=== PATIENT | male | born 1955 | race African-American/Black ===

== ENCOUNTER 2018-09-06 09:13 | Inpatient (IN) ==
[2018-09-06] MEDS: Sod Chloride 0.9% Inj 1,000 ML IV.CONT SCH ×3 (10:04→21:00)
--- NOTE | 2018-09-06 10:04 | ED ---
HPI General Chief complaint: Weakness Stated complaint: Weakness Time Seen by Provider: 09/06/18 09:54 Source: patient Mode of arrival: ambulatory Limitations: no limitations History of Present Illness HPI Narrative: 63-year-old male complains of generalized malaise and weakness. Patient states that symptoms started about 4 months ago and got progressively worse since then. Patient denies any headache. Patient denies any visual change. Patient denies any neck pain. Patient denies any chest pain or shortness of breath. Patient denies abdominal pain. Patient denies any nausea vomiting diarrhea. Patient denies any dysuria frequency. Patient denies any back pain. Patient denies any fever chills. Patient denies any focal weakness or numbness of the extremity. Patient is not on any routine medication. Patient denies any medical problem. Patient denies alcohol or drug abuse. Complaint: Reports generalized weakness Onset (ago): week(s) Duration: constant Location: Reports generalized Migration: Reports none Severity: moderate Relieving factors: none Exacerbating factors: none Associated symptoms: Reports denies other symptoms Related Data Home Medications Medication Instructions Recorded Confirmed No Known Home Medications 09/06/18 09/06/18 Allergies Allergy/AdvReac Type Severity Reaction Status Date / Time No Known Allergies Allergy Verified 09/06/18 09:20 Review of Systems ROS: all other systems reviewed are negative PMFSH Medical History Medical History Patient denies medical problems (Acute) Surgical History Surgical History No history of previous surgery (Acute) Social History Social History Substance History: No History of Abuse Second Hand Smoke Exposure: No Smoking Status: Former smoker Tobacco Type: Cigarettes How Often Do You Have a Drink Containing Alcohol: Never Recent Travel in [place] within the Last 8 Weeks: No Recent Out of Country Travel within the Last 8 Weeks: No Immunization History Tetanus Immunization: >5 Years Exam Narrative Exam Narrative: GENERAL: Well-nourished, well-developed patient. SKIN: Focused skin assessment warm/dry. HEAD: Normocephalic. EYES: No scleral icterus. No injection or drainage. NECK: Supple, trachea midline. No JVD or lymphadenopathy. CARDIOVASCULAR: Regular rate and rhythm without murmurs, gallops, or rubs. RESPIRATORY: Breath sounds equal bilaterally. No accessory muscle use. GASTROINTESTINAL: Abdomen soft, non-tender, nondistended. MUSCULOSKELETAL: No cyanosis, or edema. BACK: Nontender without obvious deformity. No CVA tenderness. Neurologic exam normal. Course Initial Documented Vital Signs Temperature 98.4 F 09/06/18 09:21 Pulse Rate 85 09/06/18 09:21 Respiratory Rate 18 09/06/18 09:21 Blood Pressure 118/69 09/06/18 09:21 Pulse Oximetry 100 09/06/18 09:21 Last Documented Vital Signs Temperature 98.1 F 09/06/18 14:55 Pulse Rate 78 09/06/18 14:55 Respiratory Rate 17 09/06/18 14:55 Blood Pressure 108/77 09/06/18 14:55 Pulse Oximetry 100 09/06/18 14:55 Medical Decision Making MDM Narrative Medical decision making narrative: 63-year-old male complains of generalized malaise and weakness started 4 months ago. Normal saline solution 125 cc an hour. Calcium gluconate 1 g IV given. Potassium 40 mEq p.o. given. Potassium 20 mEq IV given. Medical Screen Exam Complete: Yes Emergency Medical Condition: Yes Differential Diagnosis Differential Diagnosis: Differential diagnosis including physical deconditioning , dehydration, electrolyte imbalance, pneumonia, UTI, sepsis. Lab Data Lab results reviewed: Yes I reviewed the patient's lab results. Result diagrams: 09/06/18 10:00 09/06/18 10:00 Lab Results 09/06/18 09/06/18 09/06/18 Range/Units 10:00 10:00 10:00 WBC 3.4 L (4.0-11.0) th/mm3 RBC 3.75 L (4.50-5.90) mil/mm3 Hgb 9.8 L (13.0-17.0) gm/dL Hct 30.8 L (39.0-51.0) % MCV 82.0 (80.0-100.0) fL MCH 26.0 L (27.0-34.0) pg MCHC 31.7 L (32.0-36.0) % RDW 16.7 (11.6-17.2) % Plt Count 219 (150-450) th/mm3 MPV 7.6 (7.0-11.0) fL Neut % (Auto) 48.0 (16.0-70.0) % Lymph % (Auto) 22.3 (9.0-44.0) % Page % (Auto) 6.9 (0.0-8.0) % Eos % (Auto) 20.3 H (0.0-4.0) % Baso % (Auto) 2.5 H (0.0-2.0) % Neut # (Auto) 1.6 L (1.8-7.7) th/mm3 Lymph # (Auto) 0.8 L (1.0-4.8) th/mm3 [place] # (Auto) 0.2 (0.0-0.9) th/mm3 Eos # (Auto) 0.7 H (0.0-0.4) th/mm3 Baso # (Auto) 0.1 (0.0-0.2) th/mm3 WBC Differential . Differential Comment Auto diff final PT 11.7 H (9.8-11.6) sec INR 1.2 Ratio Sodium (136-145) meq/L Potassium (3.5-5.1) meq/L Chloride (98-107) meq/L Carbon Dioxide (21.0-32.0) meq/L Anion Gap (5-15) meq/L BUN (7-18) mg/dL Creatinine (0.60-1.30) mg/dL Estimated GFR (>89) mL/min Random Glucose (74-106) mg/dL Calcium (8.5-10.1) mg/dL Calcium Adj for Albumin (8.5-10.1) mg/dL Magnesium (1.5-2.5) mg/dL Total Bilirubin (0.2-1.0) mg/dL AST (15-37) U/L ALT (12-78) U/L Alkaline Phosphatase (45-117) U/L Total Creatine Kinase 950 H (39-308) U/L CK-MB (CK-2) 1.1 (0.5-3.6) ng/mL CK-MB (CK-2) % 0.1 (0.0-4.0) % Total Protein (6.4-8.2) g/dL Albumin (3.4-5.0) g/dL TSH 1.730 (0.358-3.740) uIU/mL PTH Intact (12.4-76.8) pg/mL Urine Color (Yellw/Straw) Urine Clarity (Clear) Urine pH (5.0-8.5) Ur Specific [place] (1.002-1.035) Urine Protein (Neg-Trace) mg/dL Urine Glucose (UA) (Negative) mg/dL Urine Ketones (Negative) mg/dL Urine Occult Blood (Negative) Urine Nitrate (Negative) Urine Bilirubin (Negative) Urine Urobilinogen (Less than 2) mg/dL Ur Leukocyte Esterase (Negative) Urine RBC (0-3) /hpf Urine WBC (0-5) /hpf Ur Squamous Epith Cells (0-5) /hpf Urine Bacteria (None) /hpf Micro UA Comment Ur Microscopic Review Urine Culture Comments 09/06/18 09/06/18 09/06/18 Range/Units 10:00 10:00 11:20 WBC (4.0-11.0) th/mm3 RBC (4.50-5.90) mil/mm3 Hgb (13.0-17.0) gm/dL Hct (39.0-51.0) % MCV (80.0-100.0) fL MCH (27.0-34.0) pg MCHC (32.0-36.0) % RDW (11.6-17.2) % Plt Count (150-450) th/mm3 MPV (7.0-11.0) fL Neut % (Auto) (16.0-70.0) % Lymph % (Auto) (9.0-44.0) % Page % (Auto) (0.0-8.0) % Eos % (Auto) (0.0-4.0) % Baso % (Auto) (0.0-2.0) % Neut # (Auto) (1.8-7.7) th/mm3 Lymph # (Auto) (1.0-4.8) th/mm3 Page # (Auto) (0.0-0.9) th/mm3 Eos # (Auto) (0.0-0.4) th/mm3 Baso # (Auto) (0.0-0.2) th/mm3 WBC Differential Differential Comment PT (9.8-11.6) sec INR Ratio Sodium 129 L (136-145) meq/L Potassium 3.2 L (3.5-5.1) meq/L Chloride 93 L (98-107) meq/L Carbon Dioxide 22.7 (21.0-32.0) meq/L Anion Gap 13 (5-15) meq/L BUN 7 (7-18) mg/dL Creatinine 1.19 (0.60-1.30) mg/dL Estimated GFR 75 L (>89) mL/min Random Glucose 80 (74-106) mg/dL Calcium Less than 5.0 L* (8.5-10.1) mg/dL Calcium Adj for Albumin 5.9 L* (8.5-10.1) mg/dL Magnesium 1.6 (1.5-2.5) mg/dL Total Bilirubin 0.5 (0.2-1.0) mg/dL AST 44 H (15-37) U/L ALT 17 (12-78) U/L Alkaline Phosphatase 128 H (45-117) U/L Total Creatine Kinase (39-308) U/L CK-MB (CK-2) (0.5-3.6) ng/mL CK-MB (CK-2) % (0.0-4.0) % Total Protein 7.1 (6.4-8.2) g/dL Albumin 2.9 L (3.4-5.0) g/dL TSH (0.358-3.740) uIU/mL PTH Intact (12.4-76.8) pg/mL Urine Color Straw (Yellw/Straw) Urine Clarity Clear (Clear) Urine pH 6.0 (5.0-8.5) Ur Specific [place] 1.002 (1.002-1.035) Urine Protein Negative (Neg-Trace) mg/dL Urine Glucose (UA) Negative (Negative) mg/dL Urine Ketones Negative (Negative) mg/dL Urine Occult Blood Negative (Negative) Urine Nitrate Negative (Negative) Urine Bilirubin Negative (Negative) Urine Urobilinogen Less than 2 (Less than 2) mg/dL Ur Leukocyte Esterase Small H (Negative) Urine RBC 1 (0-3) /hpf Urine WBC 4 (0-5) /hpf Ur Squamous Epith Cells 1 (0-5) /hpf Urine Bacteria Rare H (None) /hpf Micro UA Comment Culture not ind Ur Microscopic Review Not Reportable Urine Culture Comments Culture not ind 09/06/18 Range/Units 13:10 WBC (4.0-11.0) th/mm3 RBC (4.50-5.90) mil/mm3 Hgb (13.0-17.0) gm/dL Hct (39.0-51.0) % MCV (80.0-100.0) fL MCH (27.0-34.0) pg MCHC (32.0-36.0) % RDW (11.6-17.2) % Plt Count (150-450) th/mm3 MPV (7.0-11.0) fL Neut % (Auto) (16.0-70.0) % Lymph % (Auto) (9.0-44.0) % Page % (Auto) (0.0-8.0) % Eos % (Auto) (0.0-4.0) % Baso % (Auto) (0.0-2.0) % Neut # (Auto) (1.8-7.7) th/mm3 Lymph # (Auto) (1.0-4.8) th/mm3 Page # (Auto) (0.0-0.9) th/mm3 Eos # (Auto) (0.0-0.4) th/mm3 Baso # (Auto) (0.0-0.2) th/mm3 WBC Differential Differential Comment PT (9.8-11.6) sec INR Ratio Sodium (136-145) meq/L Potassium (3.5-5.1) meq/L Chloride (98-107) meq/L Carbon Dioxide (21.0-32.0) meq/L Anion Gap (5-15) meq/L BUN (7-18) mg/dL Creatinine (0.60-1.30) mg/dL Estimated GFR (>89) mL/min Random Glucose (74-106) mg/dL Calcium (8.5-10.1) mg/dL Calcium Adj for Albumin (8.5-10.1) mg/dL Magnesium (1.5-2.5) mg/dL Total Bilirubin (0.2-1.0) mg/dL AST (15-37) U/L ALT (12-78) U/L Alkaline Phosphatase (45-117) U/L Total Creatine Kinase (39-308) U/L CK-MB (CK-2) (0.5-3.6) ng/mL CK-MB (CK-2) % (0.0-4.0) % Total Protein (6.4-8.2) g/dL Albumin (3.4-5.0) g/dL TSH (0.358-3.740) uIU/mL PTH Intact 381.2 H (12.4-76.8) pg/mL Urine Color (Yellw/Straw) Urine Clarity (Clear) Urine pH (5.0-8.5) Ur Specific [place] (1.002-1.035) Urine Protein (Neg-Trace) mg/dL Urine Glucose (UA) (Negative) mg/dL Urine Ketones (Negative) mg/dL Urine Occult Blood (Negative) Urine Nitrate (Negative) Urine Bilirubin (Negative) Urine Urobilinogen (Less than 2) mg/dL Ur Leukocyte Esterase (Negative) Urine RBC (0-3) /hpf Urine WBC (0-5) /hpf Ur Squamous Epith Cells (0-5) /hpf Urine Bacteria (None) /hpf Micro UA Comment Ur Microscopic Review Urine Culture Comments Imaging Data Attestation: I personally reviewed and interpreted this imaging study as follows : Radiologist's impression: Chest X-Ray 09/06/18 09:57 CONCLUSION: No acute cardiopulmonary abnormality is identified. Discharge Plan Discharge Disposition Patient Disposition: ED Admit(ED Internal Use Only) Discharge Order Discharge Orders: ED Use Only Admit Order (Routine); Ordered 09/06/18 Ordered By: Kp Moreau Discharge Details Diagnosis: Hypocalcemia, Acute hyponatremia, Acute hypokalemia Physicians Team ED Provider: Kp Moreau Primary Care Provider: UNKNOWN, Attending Provider: Enrique Rodriguez Discharge Interventions Interventions: ED Discharge Assessment Last Done: 09/06/18 15:10 Status ED Status: Admitted Observation Patient
[2018-09-06 10:18] LABS: Baso # (Auto) 0.1 th/mm3 (0.0-0.2); Baso % (Auto) 2.5 % (0.0-2.0); Eos # (Auto) 0.7 th/mm3 (0.0-0.4); Eos % (Auto) 20.3 % (0.0-4.0); Hematocrit 30.8 % (39.0-51.0); Hemoglobin 9.8 gm/dL (13.0-17.0); Lymph # (Auto) 0.8 th/mm3 (1.0-4.8); Lymph % (Auto) 22.3 % (9.0-44.0); Mean Corpuscular HGB Conc 31.7 % (32.0-36.0); Mean Platelet Volume 7.6 fL (7.0-11.0); Mono # (Auto) 0.2 th/mm3 (0.0-0.9); Mono % (Auto) 6.9 % (0.0-8.0); Neut # (Auto) 1.6 th/mm3 (1.8-7.7); Platelet Count 219 th/mm3 (150-450); Red Blood Count 3.75 mil/mm3 (4.50-5.90); Red Cell Distribution Width 16.7 % (11.6-17.2); White Blood Count 3.4 th/mm3 (4.0-11.0)
[2018-09-06 10:26] LABS: INR 1.2 Ratio; Prothrombin Time 11.7 sec (9.8-11.6)
[2018-09-06 10:39] LABS: Albumin 2.9 g/dL (3.4-5.0); Anion Gap 13 meq/L (5-15); Aspartate Aminotransferase 44 U/L (15-37); Blood Urea Nitrogen 7 mg/dL (7-18); Carbon Dioxide 22.7 meq/L (21.0-32.0); Chloride 93 meq/L (98-107); Glomerular Filtration Rate 75 mL/min (>89); Glucose,Random 80 mg/dL (74-106); Potassium 3.2 meq/L (3.5-5.1); Sodium 129 meq/L (136-145)
[2018-09-06 10:41] LABS: Alanine Aminotransferase 17 U/L (12-78)
[2018-09-06 10:43] LABS: Alkaline Phosphatase 128 U/L (45-117); Total Protein 7.1 g/dL (6.4-8.2)
[2018-09-06 10:49] LABS: Thyroid Stimulating Hormone 1.73 uIU/mL (0.358-3.740)
[2018-09-06] MEDS ORDERED: Calcium Gluconate Inj 1 GM in Dextrose 5% in Water Inj 100 ML IV.SIG ONE ×2 (11:01)
[2018-09-06 11:08] LABS: CKMB Percent 0.1 % (0.0-4.0); Creatine Kinase MB 1.1 ng/mL (0.5-3.6)
--- NOTE | 2018-09-06 11:25 | XR ---
EXAM DATE: 09/06/2018 10:40 AM EST AGE/SEX: 63 years / Male INDICATIONS: Short of breath. CLINICAL DATA: This is the patient's initial encounter. Patient reports that signs and symptoms have been present for 1 day and indicates a pain score of 0/10. MEDICAL/SURGICAL HISTORY: None. None. COMPARISON: No prior exams available for comparison. FINDINGS: Portable upright AP view of the chest demonstrates a normal-sized cardiac silhouette. EKG lines overl ie the patient. There is a well-demarcated opacity at the right cardiophrenic angle which typically r epresents a benign process and most likely a prominent pericardial fat pad but a hernia or eventratio n of the hemidiaphragm are other considerations. No pleural effusion, airspace consolidation, or pneu mothorax is visualized. Bones and soft tissues demonstrate no acute abnormality. CONCLUSION: No acute cardiopulmonary abnormality is identified. Electronically signed by: Yung Palomares MD 09/06/2018 11:24 AM EST
[2018-09-06 12:03] LABS: Bacteria,Urine Rare /hpf; Bilirubin,Urine Negative (Negative); Clarity,Urine Clear (Clear); Color,Urine Straw (Yellw/Straw); Glucose,Urine (UA) Negative (Negative); Leukocyte Esterase,Urine Small (Negative); Nitrite,Urine Negative (Negative); Specific Gravity,Urine 1.002 (1.002-1.035); Squamous Epithelial Cell,Urine 1 /hpf (0-5)
[2018-09-06] MEDS ORDERED: Potassium Chlor 20 mEq Premix 20 MEQ/100 ML PIGGYBACK IV.SIG ONE (12:33)
--- NOTE | 2018-09-06 17:26 | P.HP ---
History of Present Illness Primary Care Physician: UNKNOWN History of Present Illness: 63-year-old black male being admitted for symptomatic hypocalcemia. Patient was in his usual state of health until this morning after he had bicycled to a grocery store and went inside, felt all of a sudden weak all over , felt his legs give away, developed some shortness of breath and fatigue. Reports some lightheadedness but denies full loss of consciousness. He denies having any chest pain. Ambulance was called. In the emergency department vital signs were stable, blood work was all unremarkable except for a albumin adjusted calcium of 5.9. Patient started on IV fluids and calcium supplementation. EKG was obtained which adamantly reviewed which shows no concerning changes for ischemia or infarction, however there appears to be a sawtooth pattern with mild QT prolongation. Hemodynamically stable otherwise. Repeat EKG is being ordered. Patient says he does not drink milk, says he would rather prefer to not drink milk if it was an option. Inpatient Certification: I certify that the inpatient services were ordered in accordance with Medicare regulations governing the order. This includes certification that hospital inpatient services are reasonable and necessary and in the case of services not specified as inpatient-only under 42 CFR 419.22(n), that they are appropriately provided as inpatient services in accordance to with the 2-midnight benchmark under 43 CFR 412.3(e) Estimated Total Length of Stay (Days): 2 Plans for Post Hospital Care: Not yet determined Review of Systems All other systems reviewed negative except as stated in HPI PMFSH - History History Provided By: Patient - Medical History Medical History: Medical History (Last Reviewed 09/06/18 @ 17:23 by Enrique Rodriguez MD) Patient denies medical problems - Surgical History Surgical History: Surgical History (Last Reviewed 09/06/18 @ 17:23 by Enrique Rodriguez MD) No history of previous surgery - Family History Family History: Family History (Last Updated 09/06/18 @ 17:24 by Enrique Rodriguez MD) Other Patient denies significant medical history - Social History I have reviewed the patient's Social History: Yes - Tobacco History Second Hand Smoke Exposure: No Tobacco Use In Past 30 Days: No Smoking Status: Former smoker Tobacco Type: Cigarettes - Alcohol History How Often Do You Have a Drink Containing Alcohol: Never - Substance Use History Substance History: No History of Abuse - Travel History Recent Travel in the [facility] Within the Last 8 Weeks: No Recent Travel Out of the Country Within the Last 8 Weeks: No - Immunization History Tetanus Immunization: >5 Years Medications and Allergies Active Medications: Active Medications Sodium Chloride (Ns Inj) 1,000 mls @ 125 mls/hr IV.CONT .Q8H ANIL Last Admin: 09/06/18 10:04 Dose: 125 mls/hr Sodium Chloride (Ns Flush) 2 ml IV.FLUSH BID ANIL Sodium Chloride (Ns Flush) 2 ml IV.FLUSH PRN PRN PRN Reason: FLUSH AFTER USING IV ACCESS Allergies Allergy/AdvReac Type Severity Reaction Status Date / Time No Known Allergies Allergy Verified 09/06/18 09:20 Home Medications Medication Instructions Recorded Confirmed Type No Known Home Medications 09/06/18 09/06/18 History Exam Vital signs: Vital Signs 09/06/18 09:21 09/06/18 09:58 09/06/18 12:03 Temperature 98.4 F 98 F Pulse Rate 85 72 74 Respiratory Rate 18 18 Blood Pressure 118/69 108/69 Pulse Oximetry 100 100 100 09/06/18 12:51 09/06/18 13:12 09/06/18 14:55 Temperature 97.9 F 98.1 F Pulse Rate 87 74 78 Respiratory Rate 17 17 Blood Pressure 102/68 108/77 Pulse Oximetry 100 100 09/06/18 16:00 Temperature Pulse Rate 73 Respiratory Rate 16 Blood Pressure 107/63 Pulse Oximetry 100 Intake & Output 09/05/18 09/06/18 09/06/18 18:59 06:59 18:59 Intake Total 210 / 210 Output Total 600 / 600 Balance -390 / -390 Weight 77.111 kg Intake: IV 210 / 210 Calcium Gluconate Inj 1 GM In 110 / 110 D5W Inj 100 ML @ 110 mls/hr IV. SIG ONCE ONE Rx#:[id number] KCl 20 mEq Premix Inj 20 meq In 100 / 100 100 ml @ 50 mls/hr IV.SIG ONCE ONE Rx#:[id number] Output: Urine 600 / 600 Other: # Voids 2 Narrative: VS: afebrile GENERAL: Elderly black male, lying in bed, no acute distress SKIN: Warm and dry. EYES: Pupils equal and round, opacified pupils. No scleral icterus. No injection or drainage. ENT: No nasal bleeding or discharge. Mucous membranes pink and moist. Mild tongue fasciculations CARDIOVASCULAR: Regular rate and rhythm. no murmurs RESPIRATORY: No accessory muscle use. Clear to auscultation. Breath sounds equal bilaterally. GASTROINTESTINAL: Abdomen soft, non-tender, nondistended. Extremities: No clubbing, cyanosis, or edema. No obvious deformities. No carpal pedal spasms elicited. MUSCULOSKELETAL: grossly intact ROM with 5/5 strength in upper and lower extremities proximally; adequate muscle bulk and tone for age and habitus NEUROLOGICAL: Awake and alert. No obvious cranial nerve deficits. No facial droop nor slurred speech noted. PSYCHIATRIC: Appropriate mood and affect; insight and judgment normal. Results - Labs CBC & Chem 7: 09/08/18 05:27 09/08/18 03:57 Labs: Laboratory Results - last 24 hr 09/06/18 09/06/18 09/06/18 10:00 10:00 10:00 WBC 3.4 L RBC 3.75 L Hgb 9.8 L Hct 30.8 L MCV 82.0 MCH 26.0 L MCHC 31.7 L RDW 16.7 Plt Count 219 MPV 7.6 Neut % (Auto) 48.0 Lymph % (Auto) 22.3 [place] % (Auto) 6.9 Eos % (Auto) 20.3 H Baso % (Auto) 2.5 H Neut # (Auto) 1.6 L Lymph # (Auto) 0.8 L [place] # (Auto) 0.2 Eos # (Auto) 0.7 H Baso # (Auto) 0.1 WBC Differential . Differential Comment Auto diff final PT 11.7 H INR 1.2 Sodium Potassium Chloride Carbon Dioxide Anion Gap BUN Creatinine Estimated GFR Random Glucose Calcium Calcium Adj for Albumin Magnesium Total Bilirubin AST ALT Alkaline Phosphatase Total Creatine Kinase 950 H CK-MB (CK-2) 1.1 CK-MB (CK-2) % 0.1 Total Protein Albumin TSH 1.730 PTH Intact Urine Color Urine Clarity Urine pH Ur Specific [place] Urine Protein Urine Glucose (UA) Urine Ketones Urine Occult Blood Urine Nitrate Urine Bilirubin Urine Urobilinogen Ur Leukocyte Esterase Urine RBC Urine WBC Ur Squamous Epith Cells Urine Bacteria Micro UA Comment Ur Microscopic Review Urine Culture Comments 09/06/18 09/06/18 09/06/18 10:00 10:00 11:20 WBC RBC Hgb Hct MCV MCH MCHC RDW Plt Count MPV Neut % (Auto) Lymph % (Auto) [place] % (Auto) Eos % (Auto) Baso % (Auto) Neut # (Auto) Lymph # (Auto) [place] # (Auto) Eos # (Auto) Baso # (Auto) WBC Differential Differential Comment PT INR Sodium 129 L Potassium 3.2 L Chloride 93 L Carbon Dioxide 22.7 Anion Gap 13 BUN 7 Creatinine 1.19 Estimated GFR 75 L Random Glucose 80 Calcium Less than 5.0 L* Calcium Adj for Albumin 5.9 L* Magnesium 1.6 Total Bilirubin 0.5 AST 44 H ALT 17 Alkaline Phosphatase 128 H Total Creatine Kinase CK-MB (CK-2) CK-MB (CK-2) % Total Protein 7.1 Albumin 2.9 L TSH PTH Intact Urine Color Straw Urine Clarity Clear Urine pH 6.0 Ur Specific [place] 1.002 Urine Protein Negative Urine Glucose (UA) Negative Urine Ketones Negative Urine Occult Blood Negative Urine Nitrate Negative Urine Bilirubin Negative Urine Urobilinogen Less than 2 Ur Leukocyte Esterase Small H Urine RBC 1 Urine WBC 4 Ur Squamous Epith Cells 1 Urine Bacteria Rare H Micro UA Comment Culture not ind Ur Microscopic Review Not Reportable Urine Culture Comments Culture not ind 09/06/18 13:10 WBC RBC Hgb Hct MCV MCH MCHC RDW Plt Count MPV Neut % (Auto) Lymph % (Auto) [place] % (Auto) Eos % (Auto) Baso % (Auto) Neut # (Auto) Lymph # (Auto) [place] # (Auto) Eos # (Auto) Baso # (Auto) WBC Differential Differential Comment PT INR Sodium Potassium Chloride Carbon Dioxide Anion Gap BUN Creatinine Estimated GFR Random Glucose Calcium Calcium Adj for Albumin Magnesium Total Bilirubin AST ALT Alkaline Phosphatase Total Creatine Kinase CK-MB (CK-2) CK-MB (CK-2) % Total Protein Albumin TSH PTH Intact 381.2 H Urine Color Urine Clarity Urine pH Ur Specific [place] Urine Protein Urine Glucose (UA) Urine Ketones Urine Occult Blood Urine Nitrate Urine Bilirubin Urine Urobilinogen Ur Leukocyte Esterase Urine RBC Urine WBC Ur Squamous Epith Cells Urine Bacteria Micro UA Comment Ur Microscopic Review Urine Culture Comments - Imaging Impressions Chest X-Ray 09/06/18 09:57 CONCLUSION: No acute cardiopulmonary abnormality is identified. Caprini VTE Risk Assessment Caprini VTE Risk Assessment: Moderate/High Risk (score >= 2) Caprini Risk Assessment Model: Point Value = 1 Point Value = 2 Point Value = 3 Point Value = 5 Age 41-60 Minor surgery BMI > 25 kg/m2 Swollen legs Varicose veins or History of unexplained or recurrent spontaneous Oral contraceptives or hormone replacement Sepsis (< 1 month) Serious lung disease, including pneumonia (< 1 month) Abnormal pulmonary function Acute myocardial infarction Congestive heart failure (< 1 month) History of inflammatory bowel disease Medical patient at bed rest Age 61-74 Arthroscopic surgery Major open surgery (> 45 min) Laparoscopic surgery (> 45 min) Malignancy Confined to bed (> 72 hours) Immobilizing plaster cast Central venous access Age >= 75 History of VTE Family history of VTE Factor V Leiden Prothrombin [id number] Lupus anticoagulant Anticardiolipin antibodies Elevated serum homocysteine Heparin-induced thrombocytopenia Other congenital or acquired thrombophilia Stroke (< 1 month) Elective arthroplasty Hip, pelvis, or leg fracture Acute spinal cord injury (< 1 month) Prophylaxis Regimen: Total Risk Factor Score Risk Level Prophylaxis Regimen 0-1 Low Early ambulation 2 Moderate Order ONE of the following: *Sequential Compression Device (SCD) *Heparin 5000 units SQ BID 3-4 Higher Order ONE of the following medications: *Heparin 5000 units SQ TID *Enoxaparin/Lovenox 40 mg SQ daily (WT < 150 kg, CrCl > 30 mL/min) *Enoxaparin/Lovenox 30 mg SQ daily (WT < 150 kg, CrCl > 10-29 mL/min) *Enoxaparin/Lovenox 30 mg SQ BID (WT < 150 kg, CrCl > 30 mL/min) AND/OR *Sequential Compression Device (SCD) 5 or more Highest Order ONE of the following medications: *Heparin 5000 units SQ TID (Preferred with Epidurals) *Enoxaparin/Lovenox 40 mg SQ daily (WT < 150 kg, CrCl > 30 mL/min) *Enoxaparin/Lovenox 30 mg SQ daily (WT < 150 kg, CrCl > 10-29 mL/min) *Enoxaparin/Lovenox 30 mg SQ BID (WT < 150 kg, CrCl > 30 mL/min) AND *Sequential Compression Device (SCD) Assessment and Plan - Plan 63-year-old black male being admitted for symptomatic hypercalcemia Severe symptomatic hypocalcemia Received 1 g IV calcium gluconate in the ER, will need to monitor closely in ICU on telemetry Transfer to ICU, discussed case with buckle strap puncher including EKG findings -Monitor blood pressure frequently -stat BMP recheck -PTH elevated in the 300s, vitamin D levels are pending Hyponatremia and hyponatremia Suspect poor nutrition, replace potassium orally for now, checking magnesium Recheck BMP in a.m.
[2018-09-06] MEDS ORDERED: Calcium Gluconate Inj 1 GM in Sodium Chlor 0.9% Inj 100 ML IV.SIG ONE (17:29)
[2018-09-06] MEDS ORDERED: Magnesium Sulfate Inj 2 GM in Sodium Chlor 0.9% Inj 96 ML IV.SIG ONE (18:00)
[2018-09-06 19:09] LABS: Anion Gap 5 meq/L (5-15); Blood Urea Nitrogen 5 mg/dL (7-18); Chloride 105 meq/L (98-107); Glomerular Filtration Rate 87 mL/min (>89); Glucose,Random 82 mg/dL (74-106); Potassium 3.6 meq/L (3.5-5.1); Sodium 137 meq/L (136-145)
[2018-09-06 19:46] LABS: Albumin 2.8 g/dL (3.4-5.0)
--- NOTE | 2018-09-06 19:47 | P.CONCC ---
History of Present Illness Primary Care Provider: UNKNOWN History of Present Illness: 63-year-old black male being admitted for symptomatic hypocalcemia. Patient was in his usual state of health until this morning after he had bicycled to a grocery store and went inside, felt all of a sudden weak all over, felt his legs give away, developed some shortness of breath and fatigue. Reports some lightheadedness but denies full loss of consciousness. He denies having any chest pain. Ambulance was called. In the emergency department vital signs were stable, blood work was all unremarkable except for a albumin adjusted calcium of 5.9. Patient started on IV fluids and calcium supplementation. EKG was obtained which adamantly reviewed which shows no concerning changes for ischemia or infarction, however there appears to be a sawtooth pattern. Hemodynamically stable otherwise. Review of Systems All other systems reviewed negative except as stated in HPI PMFSH - History History Provided By: Patient - Medical History Medical History: Medical History (Last Reviewed 09/06/18 @ 17:23 by Enrique Rodriguez MD) Patient denies medical problems - Surgical History Surgical History: Surgical History (Last Reviewed 09/06/18 @ 17:23 by Enrique Rodriguez MD) No history of previous surgery - Family History Family History: Family History (Last Updated 09/06/18 @ 17:24 by Enrique Rodriguez MD) Other Patient denies significant medical history - Tobacco History Second Hand Smoke Exposure: No Tobacco Use In Past 30 Days: No Smoking Status: Former smoker Tobacco Type: Cigarettes - Alcohol History How Often Do You Have a Drink Containing Alcohol: Never - Substance Use History Substance History: No History of Abuse - Travel History Recent Travel in the [facility] Within the Last 8 Weeks: No Recent Travel Out of the Country Within the Last 8 Weeks: No - Immunization History Tetanus Immunization: >5 Years Medications and Allergies Active Medications: Active Medications Calcium Carbonate (Tums Chew) 500 mg CHEW BID ANIL Sodium Chloride (Ns Inj) 1,000 mls @ 125 mls/hr IV.CONT .Q8H ANIL Last Admin: 09/06/18 18:24 Dose: 125 mls/hr Magnesium Sulfate 2 gm/ Sodium (Chloride) 100 mls @ 50 mls/hr IV.SIG ONCE ONE Stop: 09/06/18 19:59 Last Admin: 09/06/18 18:47 Dose: 50 mls/hr Sodium Chloride (Ns Flush) 2 ml IV.FLUSH BID [facility] Sodium Chloride (Ns Flush) 2 ml IV.FLUSH PRN PRN PRN Reason: FLUSH AFTER USING IV ACCESS Vitamin D (Vitamin D3) 1,000 unit PO DAILY [facility] Last Admin: 09/06/18 18:25 Dose: 1,000 unit Allergies Allergy/AdvReac Type Severity Reaction Status Date / Time No Known Allergies Allergy Verified 09/06/18 09:20 Home Medications Medication Instructions Recorded Confirmed Type No Known Home Medications 09/06/18 09/06/18 History Physical Exam Vital signs: Vital Signs 09/06/18 09:21 09/06/18 09:58 09/06/18 12:03 Temperature 98.4 F 98 F Pulse Rate 85 72 74 Respiratory Rate 18 18 Blood Pressure 118/69 108/69 Pulse Oximetry 100 100 100 09/06/18 12:51 09/06/18 13:12 09/06/18 14:55 Temperature 97.9 F 98.1 F Pulse Rate 87 74 78 Respiratory Rate 17 17 Blood Pressure 102/68 108/77 Pulse Oximetry 100 100 09/06/18 16:00 Temperature Pulse Rate 73 Respiratory Rate 16 Blood Pressure 107/63 Pulse Oximetry 100 Intake & Output 09/06/18 09/06/18 09/07/18 06:59 18:59 06:59 Intake Total 1210 / 1210 Output Total 600 / 600 Balance 610 / 610 Weight 55 kg Intake: IV 1210 / 1210 NS Inj 1,000 ML @ 125 mls/hr IV 1000 / 1000 .CONT .Q8H [facility] Rx#:[id number] Calcium Gluconate Inj 1 GM In 110 / 110 D5W Inj 100 ML @ 110 mls/hr IV. SIG ONCE ONE Rx#:[id number] KCl 20 mEq Premix Inj 20 meq In 100 / 100 100 ml @ 50 mls/hr IV.SIG ONCE ONE Rx#:[id number] Output: Urine 600 / 600 Other: # Voids 2 Weight On Admission 55 kg - Constitutional no acute distress - Routine HEENT Exam Head: Present: normocephalic, atraumatic Eye: Present: EOMI, PERRL ENT: Present: mucous membranes moist - Routine Neck Exam Present: supple, full ROM. Absent: JVD, carotid bruit - Routine Respiratory Exam Absent: accessory muscle use, rales, respiratory distress, rhonchi, stridor, wheezes, crackles - Routine Cardiovascular Exam Present: RRR, S1, S2 - Routine Abdominal Exam Present: soft, normoactive bowel sounds. Absent: tenderness, distended - Routine Extremities Exam Absent: cyanosis, clubbing, edema - Routine Skin Exam Present: intact. Absent: cyanosis, erythema - Routine Neurological Exam Present: alert, oriented X3, moving all extremities - Routine Psychiatric Exam Present: normal affect Septic Shock Reassessment Septic shock perfusion: reassessment completed Assessment and Plan - Assessment and Plan Plan: Hypocalcemia -With elevated PTH -Likely vitamin D deficiency or resistance -IV and p.o. replacement -Vitamin D replacement -Vitamin D studies pending -Monitor trend Hyponatremia -Dehydration -IV fluid replacement -Monitor electrolytes and sodium levels DVT GI prophylaxis -SCDs -Early aggressive mobilization -Regular diet Level II
[2018-09-07] MEDS ORDERED: Magnesium Oxide 400 MG Tablet PO PRN (03:16)
[2018-09-07] MEDS ORDERED: Magnesium Sulfate Inj 2 GM in Sodium Chlor 0.9% Inj 96 ML IV.SIG PRN (03:16)
[2018-09-07] MEDS ORDERED: Magnesium Sulfate Inj 4 GM in Sodium Chlor 0.9% Inj 92 ML IV.SIG PRN (03:16)
[2018-09-07] MEDS ORDERED: Sodium Phosphate Inj 30 MMOL in Sodium Chlor 0.9% Inj 250 ML IV.SIG PRN (03:16)
[2018-09-07] MEDS ORDERED: Potassium Phosphate Inj 30 MMOL in Sodium Chlor 0.9% Inj 250 ML IV.SIG PRN (03:16)
[2018-09-07] MEDS ORDERED: Potassium Phosphate 500 MG Soluble Tablet PO PRN ×2 (03:16)
[2018-09-07] MEDS ORDERED: Potassium Chlor 20 mEq Premix 20 MEQ/100 ML PIGGYBACK IV.SIG PRN ×2 (03:16)
[2018-09-07] MEDS ORDERED: Potassium Chloride 25 MEQ Effervescent Tablet PO PRN (03:16)
[2018-09-07] MEDS ORDERED: Potassium Chlor 40 mEq Premix 40 MEQ/100 ML PIGGYBACK IV.SIG PRN ×2 (03:16)
[2018-09-07 05:20] LABS: Anion Gap 10 meq/L (5-15); Blood Urea Nitrogen 5 mg/dL (7-18); Carbon Dioxide 25.4 meq/L (21.0-32.0); Chloride 105 meq/L (98-107); Glomerular Filtration Rate Greater Than 89 mL/min (>89); Glucose,Random 71 mg/dL (74-106); Potassium 3.6 meq/L (3.5-5.1); Sodium 140 meq/L (136-145)
[2018-09-07 05:35] LABS: Albumin 2.6 g/dL (3.4-5.0)
[2018-09-07 05:50] LABS: Calcium-Albumin Corrected 6.1 mg/dL (8.5-10.1)
[2018-09-07] MEDS ORDERED: Dextrose 50% in Water 50 ML Vial IV.PUSH PRN (07:27)
--- NOTE | 2018-09-07 07:27 | P.PNCC ---
Subjective Subjective Remarks/Hospital Course: 63-year-old black male being admitted for symptomatic hypocalcemia. Patient was in his usual state of health until this morning after he had bicycled to a grocery store and went inside, felt all of a sudden weak all over, felt his legs give away, developed some shortness of breath and fatigue. Reports some lightheadedness but denies full loss of consciousness. He denies having any chest pain. Ambulance was called. In the emergency department vital signs were stable, blood work was all unremarkable except for a albumin adjusted calcium of 5.9. Patient started on IV fluids and calcium supplementation. EKG was obtained which adamantly reviewed which shows no concerning changes for ischemia or infarction, however there appears to be a sawtooth pattern. Hemodynamically stable otherwise. 09/07 Patient is awake , alert on room air oxygen. Denies any CP/SOB. On no drips. Afebrile. Objective Vital Signs / I&O: Vital Signs 09/06/18 09:21 09/06/18 09:58 09/06/18 12:03 Temperature 98.4 F 98 F Pulse Rate 85 72 74 Respiratory Rate 18 18 Blood Pressure 118/69 108/69 Pulse Oximetry 100 100 100 09/06/18 12:51 09/06/18 13:12 09/06/18 14:55 Temperature 97.9 F 98.1 F Pulse Rate 87 74 78 Respiratory Rate 17 17 Blood Pressure 102/68 108/77 Pulse Oximetry 100 100 09/06/18 16:00 09/06/18 20:00 09/07/18 00:00 Temperature 98.1 F 98.4 F Pulse Rate 73 72 61 Respiratory Rate 16 18 14 Blood Pressure 107/63 102/63 103/63 Pulse Oximetry 100 100 100 09/07/18 04:00 Temperature 98.2 F Pulse Rate 66 Respiratory Rate 16 Blood Pressure 100/58 L Pulse Oximetry 100 Intake & Output 09/06/18 09/07/18 09/07/18 18:59 06:59 18:59 Intake Total 1210 / 1210 655 / 655 Output Total 600 / 600 900 / 900 Balance 610 / 610 -245 / -245 Weight 55 kg 55 kg Intake: IV 1210 / 1210 535 / 535 NS Inj 1,000 ML @ 125 mls/hr IV 1000 / 1000 325 / 325 .CONT .Q8H [facility] Rx#:[id number] Calcium Gluconate Inj 1 GM In 110 / 110 D5W Inj 100 ML @ 110 mls/hr IV. SIG ONCE ONE Rx#:[id number] Calcium Gluconate Inj 1 GM In 110 / 110 NS Inj 100 ML @ 110 mls/hr IV. SIG ONCE ONE Rx#:[id number] Magnesium Sulfate Inj 2 GM In 100 / 100 NS Inj 96 ML @ 50 mls/hr IV.SIG ONCE ONE Rx#:[id number] KCl 20 mEq Premix Inj 20 meq In 100 / 100 100 ml @ 50 mls/hr IV.SIG ONCE ONE Rx#:[id number] Oral 120 / 120 Output: Urine 600 / 600 900 / 900 Other: # Voids 2 4 Weight On Admission 55 kg Result Diagrams: 09/06/18 10:00 09/07/18 04:25 Other Results: Laboratory Results - last 12 hr 09/06/18 09/06/18 09/06/18 18:29 19:20 20:30 Sodium Potassium Chloride Carbon Dioxide Anion Gap BUN Creatinine Estimated GFR Random Glucose Calcium Less than 5.0 L* Calcium Adj for Albumin 6.0 L* Albumin 2.8 L Nasal Screen MRSA (PCR) Not detected 09/07/18 04:25 Sodium 140 Potassium 3.6 Chloride 105 Carbon Dioxide 25.4 Anion Gap 10 BUN 5 L Creatinine 0.92 Estimated GFR Greater than 89 Random Glucose 71 L Calcium Less than 5.0 L* Calcium Adj for Albumin 6.1 L* Albumin 2.6 L Nasal Screen MRSA (PCR) Imaging: Chest X-Ray 09/06/18 09:57 CONCLUSION: No acute cardiopulmonary abnormality is identified. Objective Remarks: GENERAL: Patient is 63 yo lying in bed in NAD SKIN: Warm and dry. HEAD: Normocephalic. EYES: No scleral icterus. No injection or drainage. NECK: Supple, trachea midline. No JVD or lymphadenopathy. CARDIOVASCULAR: Regular rate and rhythm without murmurs, gallops, or rubs. RESPIRATORY: Breath sounds equal bilaterally. No accessory muscle use. GASTROINTESTINAL: Abdomen soft, non-tender, nondistended. MUSCULOSKELETAL: No cyanosis, or edema. BACK: Nontender without obvious deformity. No CVA tenderness. Assessment and Plan - Assessment and Plan Plan: Neuro: Awake and alert Pulm: Oxygen PRN keep sats >92% CXR: No acute disease CV: Monitor HR and BP keep MAP>65mmHg : Monitor renal function, electrolytes replacement per protocol. Hypocalcemia, hyponatremia( resolved) -With elevated PTH. Renal eval -Likely vitamin D deficiency or resistance -IV and p.o. replacement -Vitamin D replacement -Vitamin D studies pending -D/c IVF GI: On PO diet ID: Monitor for signs of infections ( Fever, WBC) Heme: Anemia, Leukopenia Monitor CBC Endo: SSI if needed. TSH: 1.73 DVT GI prophylaxis -SCDs Level II
[2018-09-07] MEDS ORDERED: Calcium Gluconate Inj 1 GM in Sodium Chlor 0.9% Inj 100 ML IV.SIG ONE (08:00)
[2018-09-07 08:05] LABS: Baso # (Auto) 0.1 th/mm3 (0.0-0.2); Baso % (Auto) 2.3 % (0.0-2.0); Eos # (Auto) 0.6 th/mm3 (0.0-0.4); Eos % (Auto) 14.7 % (0.0-4.0); Hematocrit 29.1 % (39.0-51.0); Hemoglobin 9.4 gm/dL (13.0-17.0); Lymph # (Auto) 1.1 th/mm3 (1.0-4.8); Lymph % (Auto) 25.3 % (9.0-44.0); Mean Corpuscular HGB Conc 32.2 % (32.0-36.0); Mean Corpuscular Hemoglobin 26.3 pg (27.0-34.0); Mean Corpuscular Volume 81.5 fL (80.0-100.0); Mono # (Auto) 0.4 th/mm3 (0.0-0.9); Mono % (Auto) 10.1 % (0.0-8.0); Neut # (Auto) 2.1 th/mm3 (1.8-7.7); Neut % (Auto) 47.6 % (16.0-70.0); Platelet Count 201 th/mm3 (150-450); Red Blood Count 3.57 mil/mm3 (4.50-5.90); Red Cell Distribution Width 16.9 % (11.6-17.2); White Blood Count 4.3 th/mm3 (4.0-11.0)
[2018-09-07] MEDS: Insulin NovoLIN Regular Correctional Sugar Inj SQ SCH ×3 (08:15→15:58)
--- NOTE | 2018-09-07 11:16 | P.CONNP ---
History of Present Illness Service: Nephrology Consult date: 09/07/18 Requesting Physician: Manju Hoang Reason for Consult: Hypocalcemia Primary Care Provider: UNKNOWN Chief Complaint: Weakness History of Present Illness: Patient is a 63-year-old -[place] male with no prior medical history he has not seen primary care physician, who stated that as he went on his bicycle to the grocery store and his legs felt weak and gave out, he has profound weakness and he was brought to the emergency with a calcium of 5.9, low albumin was noted as well, patient denies any history of nausea, vomiting, diarrhea, he is thinly built male with a he said he does not smoke or drink alcohol, he did not recall having problems with calcium in the past. He denies any chest pain he did have some shortness of breath at the time he felt weak. Review of Systems Constitutional: Reports weakness Eyes: Denies blind spots, Denies blurry vision, Denies bulging eyes, Denies change in vision, Denies double vision, Denies discharge, Denies dry eyes, Denies floaters, Denies irritation, Denies itchy eyes, Denies loss of vision, Denies pain, Denies requires corrective lenses, Denies sensitivity to light, Denies other Ears, Nose, Mouth, and Throat: Denies abnormal hearing, Denies bleeding gums, Denies bad breath, Denies change in voice, Denies dental pain, Denies difficulty swallowing, Denies dizziness, Denies dry mouth, Denies ear discharge , Denies ear pain, Denies facial pain, Denies headache(s), Denies hearing loss, Denies hoarseness, Denies lip swelling, Denies nosebleed, Denies mouth lesions, Denies mouth pain, Denies nasal congestion, Denies nasal discharge, Denies nasal obstruction, Denies nasal trauma, Denies neck lump, Denies neck pain, Denies nose pain, Denies pain with swallowing, Denies poor balance, Denies post nasal drip, Denies ringing in the ears, Denies sinus pain, Denies sinus pressure , Denies sore throat, Denies throat swelling, Denies tongue swelling, Denies other Cardiovascular: Reports shortness of breath Respiratory: Reports shortness of breath Gastrointestinal: Denies abdominal pain, Denies belching, Denies black, tarry stools, Denies bloating, Denies bright, red blood in stools, Denies change in bowel habits, Denies constant urge to pass stool, Denies change in stools, Denies coffee ground vomit, Denies constipation, Denies cramping, Denies difficulty swallowing, Denies excessive passing of gas, Denies feeling full early, Denies heartburn, Denies incontinent of stools, Denies loose stools, Denies nausea, Denies pain with swallowing, Denies vomiting, Denies vomiting blood, Denies other Genitourinary: Denies blood in semen, Denies blood in urine, Denies decreased urination, Denies difficulty urinating, Denies difficulty with ejaculations, Denies erectile dysfunction, Denies genital lesions, Denies genital pain, Denies painful urination, Denies side pain, Denies frequent nighttime urination , Denies painful ejaculations, Denies penile discharge, Denies scrotal swelling , Denies testicle lump, Denies testicle pain, Denies urinary frequency, Denies urinary hesitancy, Denies urinary incontinence, Denies urinary urgency, Denies other Musculoskeletal: Reports muscle weakness Skin/Breast: Denies acne, Denies bleeding lesions, Denies boil, Denies breast swelling, Denies breast skin changes, Denies breast pain, Denies breast lump, Denies change in breast shape, Denies change in hair, Denies change in skin color, Denies changing lesions, Denies dry skin, Denies excessive hair growth, Denies hair loss, Denies itching, Denies lesions, Denies nail changes, Denies new lesions, Denies nipple discharge, Denies non-healing lesions, Denies redness , Denies sensitivity to light, Denies rash, Denies skin pain, Denies skin ulcer , Denies sores, Denies stretch miramontes, Denies unusual bruising, Denies wounds, Denies yellowing of the skin, Denies other Neurologic: Reports dizziness, Reports weakness Psychiatric: Denies abnormal sleep pattern, Denies anxiety, Denies behavioral changes, Denies change in appetite, Denies change in sex drive, Denies confusion , Denies depression, Denies difficulty concentrating, Denies hearing things others do not hear, Denies hopelessness, Denies irritability, Denies lack of enjoyment, Denies memory loss, Denies mood swings, Denies panic attacks, Denies paranoia, Denies seeing things others do not see, Denies sensing things others do not sense, Denies tactile hallucinations, Denies thoughts of hurting/killing others, Denies thoughts of hurting/killing yourself, Denies other Endocrine: Denies cold intolerance, Denies excessive sweating, Denies flushing, Denies heat intolerance, Denies increased hunger, Denies increased thirst, Denies increased urination, Denies rapid, pounding, or irregular heartbeat, Denies other Hematologic/Lymphatic: Denies easy bleeding, Denies easy bruising, Denies enlarged lymph nodes, Denies other Allergic/Immunologic: Denies GI upset with certain foods, Denies hives, Denies itchy eyes, Denies lip swelling, Denies seasonal runny nose, Denies throat swelling, Denies tongue swelling, Denies wheezing, Denies other PMFSH - History History Provided By: Patient - Medical History Medical History: Medical History (Last Reviewed 09/07/18 @ 11:14 by Brown Funez MD) Patient denies medical problems - Surgical History Surgical History: Surgical History (Last Reviewed 09/07/18 @ 11:14 by Brown Funez MD) No history of previous surgery - Family History Family History: Family History (Last Reviewed 09/07/18 @ 11:14 by Brown Funez MD) Other Patient denies significant medical history - Social History I have reviewed the patient's Social History: Yes - Tobacco History Second Hand Smoke Exposure: No Tobacco Use In Past 30 Days: No Smoking Status: Former smoker Tobacco Type: Cigarettes - Alcohol History How Often Do You Have a Drink Containing Alcohol: Never - Substance Use History Substance History: No History of Abuse - Travel History Recent Travel in the [facility] Within the Last 8 Weeks: No Recent Travel Out of the Country Within the Last 8 Weeks: No - Immunization History Tetanus Immunization: >5 Years Medications and Allergies Active Medications: Active Medications Calcium Carbonate (Tums Chew) 500 mg CHEW BID ANIL Last Admin: 09/07/18 08:16 Dose: 500 mg Dextrose (D50w Vial) 50 ml IV.PUSH UNSCH PRN PRN Reason: PER HYPOGLYCEMIA PROTOCOL Glucagon (Glucagon Inj) 1 mg OTHER PRN PRN PRN Reason: for Hypoglycemia Protocol Magnesium Sulfate 4 gm/ Sodium (Chloride) 100 mls @ 50 mls/hr IV.SIG UNSCH PRN PRN Reason: For Magnesium 0.9 - 1.1 mg/dL Magnesium Sulfate 2 gm/ Sodium (Chloride) 100 mls @ 50 mls/hr IV.SIG UNSCH PRN PRN Reason: For Magnesium 1.2 - 1.6 mg/dL Potassium Chloride (Kcl 20 Meq Premix Inj) 20 meq in 100 mls @ 50 mls/hr IV.SIG Q2H PRN PRN Reason: For Potassium 3.3 - 3.5 mEq/L Potassium Chloride (Kcl 40 Meq Premix Inj) 40 meq in 100 mls @ 25 mls/hr IV.SIG UNSCH PRN PRN Reason: For Potassium 3.3 - 3.5 mEq/L Potassium Chloride (Kcl 20 Meq Premix Inj) 20 meq in 100 mls @ 50 mls/hr IV.SIG Q2H PRN PRN Reason: For Potassium 2.8 - 3.2 mEq/L Potassium Phosphate 30 mmol/ (Sodium Chloride) 260 mls @ 42 mls/hr IV.SIG UNSCH PRN PRN Reason: SEE LABEL COMMENTS Sodium Phosphate 30 mmol/ (Sodium Chloride) 260 mls @ 42 mls/hr IV.SIG UNSCH PRN PRN Reason: For Phosphorus < 2.5 mg/dL Potassium Chloride (Kcl 40 Meq Premix Inj) 40 meq in 100 mls @ 25 mls/hr IV.SIG Q2H PRN PRN Reason: For Potassium 2.8 - 3.2 mEq/L Insulin Human Regular (Novolin R Correctional Sugar Inj) 0 units SQ Q4HR [facility]; Protocol Last Admin: 09/07/18 08:15 Dose: Not Given Magnesium Oxide (Mag-Ox) 800 mg PO UNSCH PRN PRN Reason: For Magnesium 1.2 - 1.6 mg/dL Potassium Bicarb/Potassium Chloride (K-Lyte Cl Eff) 50 meq PO UNSCH PRN PRN Reason: For Potassium 3.3 - 3.5 mEq/L Potassium Phosphate (K-Phos Original) 2,000 mg PO Q4H PRN PRN Reason: Phosphorus Less Than 2.5 mg/dL Potassium Phosphate (K-Phos Original) 2,000 mg PO UNSCH PRN PRN Reason: SEE LABEL COMMENTS Sodium Chloride (Ns Flush) 2 ml IV.FLUSH BID ANIL Last Admin: 09/07/18 08:16 Dose: 2 ml Sodium Chloride (Ns Flush) 2 ml IV.FLUSH PRN PRN PRN Reason: FLUSH AFTER USING IV ACCESS Last Admin: 09/07/18 08:16 Dose: 2 ml Vitamin D (Vitamin D3) 1,000 unit PO DAILY [facility] Last Admin: 09/07/18 08:16 Dose: 1,000 unit Allergies Allergy/AdvReac Type Severity Reaction Status Date / Time No Known Allergies Allergy Verified 09/06/18 09:20 Home Medications Medication Instructions Recorded Confirmed Type No Known Home Medications 09/06/18 09/06/18 History Exam Vital signs: Vital Signs 09/06/18 12:03 09/06/18 12:51 09/06/18 13:12 Temperature 98 F 97.9 F Pulse Rate 74 87 74 Respiratory Rate 18 17 Blood Pressure 108/69 102/68 Pulse Oximetry 100 100 09/06/18 14:55 09/06/18 16:00 09/06/18 19:14 Temperature 98.1 F Pulse Rate 78 73 61 Respiratory Rate 17 16 Blood Pressure 108/77 107/63 Pulse Oximetry 100 100 09/06/18 19:18 09/06/18 20:00 09/06/18 21:00 Temperature 98.1 F Pulse Rate 74 75 99 H Respiratory Rate 15 20 20 Blood Pressure 102/63 95/63 L 125/63 Pulse Oximetry 100 100 100 09/06/18 22:00 09/06/18 23:00 09/07/18 00:00 Temperature 98.4 F Pulse Rate 70 65 61 Respiratory Rate 17 16 14 Blood Pressure 96/61 L 103/63 102/63 Pulse Oximetry 100 100 100 09/07/18 01:00 09/07/18 01:01 09/07/18 02:00 Temperature Pulse Rate 91 H 99 H 63 Respiratory Rate 28 H 25 H 16 Blood Pressure 106/63 96/60 L Pulse Oximetry 95 91 L 100 09/07/18 03:00 09/07/18 04:00 09/07/18 04:05 Temperature 98.2 F Pulse Rate 69 66 79 Respiratory Rate 14 15 22 Blood Pressure 95/63 L 81/50 L 100/58 L Pulse Oximetry 100 99 100 09/07/18 05:00 09/07/18 05:01 09/07/18 06:00 Temperature Pulse Rate 95 H 90 61 Respiratory Rate 38 H 25 H 15 Blood Pressure 88/65 L Pulse Oximetry 98 91 L 100 09/07/18 06:02 09/07/18 07:00 09/07/18 08:00 Temperature 98.3 F Pulse Rate 78 61 73 Respiratory Rate 17 14 23 Blood Pressure 104/69 101/68 105/71 Pulse Oximetry 100 100 100 09/07/18 09:00 09/07/18 10:00 Temperature Pulse Rate 59 L 62 Respiratory Rate 14 14 Blood Pressure 104/67 98/66 L Pulse Oximetry 100 100 Intake & Output 09/06/18 09/07/18 09/07/18 18:59 06:59 18:59 Intake Total 1210 / 1210 655 / 655 110 / 110 Output Total 600 / 600 900 / 900 Balance 610 / 610 -245 / -245 110 / 110 Weight 55 kg 55 kg Intake: IV 1210 / 1210 535 / 535 110 / 110 NS Inj 1,000 ML @ 125 mls/hr IV 1000 / 1000 325 / 325 .CONT .Q8H [facility] Rx#:[id number] Calcium Gluconate Inj 1 GM In 110 / 110 D5W Inj 100 ML @ 110 mls/hr IV. SIG ONCE ONE Rx#:[id number] Calcium Gluconate Inj 1 GM In 110 / 110 110 / 110 NS Inj 100 ML @ 110 mls/hr IV. SIG ONCE ONE Rx#:[id number] Magnesium Sulfate Inj 2 GM In 100 / 100 NS Inj 96 ML @ 50 mls/hr IV.SIG ONCE ONE Rx#:[id number] KCl 20 mEq Premix Inj 20 meq In 100 / 100 100 ml @ 50 mls/hr IV.SIG ONCE ONE Rx#:[id number] Oral 120 / 120 Output: Urine 600 / 600 900 / 900 Other: # Voids 2 4 Weight On Admission 55 kg Narrative: GENERAL: Thinly built Mal-nourished, well-developed patient. SKIN: Warm and dry. HEAD: Normocephalic. EYES: No scleral icterus. No injection or drainage. NECK: Supple, trachea midline. No JVD or lymphadenopathy. CARDIOVASCULAR: Regular rate and rhythm without murmurs, gallops, or rubs. RESPIRATORY: Breath sounds equal bilaterally. No accessory muscle use. GASTROINTESTINAL: Abdomen soft, non-tender, nondistended. EXTREMITIES: As above NEUROLOGICAL: Awake, alert, and oriented x 3. Non-focal. Results - Lab Results 09/08/18 05:27 09/08/18 03:57 Most recent lab results Calcium Less than 5.0 mg/dL (8.5-10.1) L* 09/07/18 04:25 Magnesium 1.6 mg/dL (1.5-2.5) 09/06/18 10:00 Assessment and Plan - Assessment (1) Hypocalcemia Code(s): E83.51 - Hypocalcemia Status: Acute Plan: Etiology to be determined, 24-hour urine for calcium losses check serum phosphorus Parathyroid hormone is high due to hypocalcemia, rule out malignancy get a CT of abdomen and pelvis due to abnormal LFT. CT chest due to retrocardiac mass Check sed rate level (2) Acute hyponatremia Code(s): E87.1 - Hypo-osmolality and hyponatremia Status: Acute Plan: Resolved due to dehydration (3) Acute hypokalemia Code(s): E87.6 - Hypokalemia Status: Acute Plan: Improved after replacement - Plan Multiple electrolyte imbalance due to poor nutrition/low albumin need to replace Give him Ensure Continue to monitor for improvement
[2018-09-07] MEDS ORDERED: Diatrizoate Meglum/Diatrizoate Sod Liq 9 ML UDC PO ONE (11:42)
--- NOTE | 2018-09-07 17:33 | ECG ---
Date Performed: 09/06/2018 Time Performed: 09:25:44 PTAGE: 63 years EKG: Sinus rhythm PROLONGED QT INTERVAL ABNORMAL ECG INTERPRETATION BASED ON A DEFAULT AGE OF 39 YEARS NO PREVIOUS TRACING DOCTOR: Oh Victor Interpretating Date/Time 09/07/2018 17:25:28
--- NOTE | 2018-09-08 00:17 | CT ---
EXAM DATE: 09/08/2018 12:04 AM EST AGE/SEX: 63 years / Male INDICATIONS: Evaluate possible right pericardial mass. CLINICAL DATA: This is the patient's initial encounter. Patient reports that signs and symptoms have been present for 1 day and indicates a pain score of 0/10. MEDICAL/SURGICAL HISTORY: None. None. RADIATION DOSE: 7.82 CTDI (mGy) ; Combined studies [place] [facility] [place] [facility] [place]EL[place]/O CONTRAST, 8. . TECHNIQUE: Multiple contiguous axial images were obtained through the chest without contrast. Image s were obtained in suspended respiration using multiple row detector helical technique. Using automa larry exposure control and adjustment of the mA and/or kV according to patient size, radiation dose was kept as low as reasonably achievable to obtain optimal diagnostic quality images. DICOM format imag e data is available electronically for review and comparison. FINDINGS: The density on the recent chest x-ray at the right lung base corresponds to left lobe of the liver re lated to eventration of the diaphragm. There are numerous hypodense liver masses characteristic of cy sts. There is also a simple cyst at the midpole of the left kidney measuring 3.6 cm. There is a mixed attenuation mass believed to arise off the upper pole of the left kidney measuring 6.9 x 5.3 cm in s ize. The lungs are clear. The osseous structures are intact. There is no adenopathy in the mediastinu m. CONCLUSION: 1. Left upper quadrant mass believed to arise off the upper pole of the left kidney measuring up to 6.9 cm. A renal cell carcinoma should be excluded. 2. Hepatic cysts. 3. Left renal cyst. 4. The density on the recent chest x-ray of the right lung base corresponds to left lobe of the live r. Electronically signed by: Harjeet Morrow MD 09/08/2018 12:16 AM EST
--- NOTE | 2018-09-08 00:33 | CT ---
EXAM DATE: 09/08/2018 12:04 AM EST AGE/SEX: 63 years / Male INDICATIONS: Abnormal liver functions. CLINICAL DATA: This is the patient's initial encounter. Patient reports that signs and symptoms have been present for 1 day and indicates a pain score of 0/10. MEDICAL/SURGICAL HISTORY: None. None. RADIATION DOSE: 7.82 CTDI (mGy) ; Combined studies COMPARISON: No prior exams available for comparison. TECHNIQUE: Multiple contiguous axial images were obtained through the abdomen. Images were obtained using multiple row detector helical technique. Using automated exposure control and adjustment of the mA and/or kV according to patient size, radiation dose was kept as low as reasonably achievable to o btain optimal diagnostic quality images. DICOM format image data is available electronically for rev iew and comparison. FINDINGS: Numerous hepatic cysts are identified. There is some eventration of the right hemidiaphragm with supe rior positioning of the left lobe of the liver at the right lung base. There is a simple cyst at the mid left kidney measuring approximately 3 cm, bilateral adrenal glands and spleen as well as pancreas are unremarkable. There is a circumscribed mixed attenuation soft tissue mass of the left upper pole kidney identified measuring 6.2 x 5.7 cm in AP and transverse dimension on axial image 25. 1.9 cm le ft lower pole renal cyst. Review of bone windows demonstrate a hemangioma at L1. There is no adenopat hy. No aneurysm. Cordero catheter is noted in the urinary bladder. No evidence of bowel obstruction. Ga llbladder is unremarkable. CONCLUSION: 1. Hepatic and renal cysts. 2. There is an exophytic mass arising off the upper pole of the left kidney suspicious for renal wyatt l carcinoma until proven otherwise. Electronically signed by: Harjeet Morrow MD 09/08/2018 12:31 AM EST
[2018-09-08 04:30] LABS: INR 1.2 Ratio
[2018-09-08 04:55] LABS: Albumin 2.8 g/dL (3.4-5.0); Calcium 5.1 mg/dL (8.5-10.1); Carbon Dioxide 26.2 meq/L (21.0-32.0); Free T4 (Free Thyroxine) 1.23 ng/dL (0.76-1.46); Magnesium 1.6 mg/dL (1.5-2.5); Phosphorus 3.2 mg/dL (2.5-4.9); Potassium 3.6 meq/L (3.5-5.1); Thyroid Stimulating Hormone 2.86 uIU/mL (0.358-3.740); Total Protein 6.8 g/dL (6.4-8.2)
[2018-09-08] MEDS: Insulin NovoLIN Regular Correctional Sugar Inj SQ SCH ×5 (05:53→21:00)
[2018-09-08 06:17] LABS: Baso # (Auto) 0.1 th/mm3 (0.0-0.2); Baso % (Auto) 1.4 % (0.0-2.0); Eos # (Auto) 0.5 th/mm3 (0.0-0.4); Eos % (Auto) 7.2 % (0.0-4.0); Hemoglobin 9.7 gm/dL (13.0-17.0); Lymph % (Auto) 16.1 % (9.0-44.0); Mean Corpuscular HGB Conc 32.2 % (32.0-36.0); Mean Corpuscular Hemoglobin 25.9 pg (27.0-34.0); Mean Corpuscular Volume 80.5 fL (80.0-100.0); Mean Platelet Volume 7.7 fL (7.0-11.0); Mono # (Auto) 0.6 th/mm3 (0.0-0.9); Mono % (Auto) 8.9 % (0.0-8.0); Neut # (Auto) 4.2 th/mm3 (1.8-7.7); Neut % (Auto) 66.4 % (16.0-70.0); Platelet Count 207 th/mm3 (150-450); Red Blood Count 3.73 mil/mm3 (4.50-5.90); Red Cell Distribution Width 17.1 % (11.6-17.2); White Blood Count 6.4 th/mm3 (4.0-11.0)
[2018-09-08 08:00] LABS: Erythrocyte Sedimentation Rate 35 mm/hr (0-20)
[2018-09-08] MEDS ORDERED: Calcium Gluconate Inj 2 GM in Sodium Chlor 0.9% Inj 100 ML IV.SIG ONE (08:00)
--- NOTE | 2018-09-08 10:59 | P.PN ---
Subjective Interval history: Nursing reports that the patient has some bizarre thoughts but no acute hallucinations or delusions. Thinks that he is very tangential in his thinking when he speaks. CT abdomen is concerning for renal cell carcinoma. When I speak to the patient he demonstrates full orientation and intact insight towards his hospitalization. He denies any chest pain or shortness of breath. He says he feels better since day 1 of admission. Physical Exam Vital signs: Vital Signs 09/07/18 11:00 09/07/18 12:00 09/07/18 13:00 Temperature Pulse Rate 61 59 L 71 Respiratory Rate 15 14 14 Blood Pressure 100/64 91/60 L 130/75 Pulse Oximetry 100 100 100 09/07/18 14:00 09/07/18 15:00 09/07/18 16:00 Temperature 98.2 F Pulse Rate 59 L 64 73 Respiratory Rate 15 15 17 Blood Pressure 107/64 111/69 113/71 Pulse Oximetry 100 100 100 09/07/18 17:00 09/07/18 18:00 09/07/18 19:00 Temperature Pulse Rate 70 89 91 H Respiratory Rate 17 27 H 17 Blood Pressure 108/70 108/68 105/67 Pulse Oximetry 100 99 100 09/07/18 20:00 09/07/18 20:45 09/07/18 21:00 Temperature 99 F Pulse Rate 105 H 80 Respiratory Rate 23 18 Blood Pressure 101/62 103/67 Pulse Oximetry 100 100 100 09/07/18 22:00 09/07/18 23:00 09/08/18 00:00 Temperature 99.4 F Pulse Rate 73 76 81 Respiratory Rate 17 21 17 Blood Pressure 100/65 105/66 104/59 L Pulse Oximetry 100 100 100 09/08/18 00:06 09/08/18 01:00 09/08/18 02:00 Temperature Pulse Rate 78 67 68 Respiratory Rate 16 15 15 Blood Pressure 104/59 L 98/64 L 94/64 L Pulse Oximetry 100 100 100 09/08/18 03:00 09/08/18 04:00 09/08/18 05:00 Temperature 99.0 F Pulse Rate 61 69 65 Respiratory Rate 15 15 13 Blood Pressure 94/62 L 101/62 92/61 L Pulse Oximetry 100 100 100 09/08/18 05:51 09/08/18 06:00 09/08/18 07:00 Temperature Pulse Rate 86 70 81 Respiratory Rate 16 14 15 Blood Pressure 98/71 L 98/64 L 99/61 L Pulse Oximetry 100 100 100 09/08/18 08:00 09/08/18 09:00 Temperature 97.9 F Pulse Rate 90 73 Respiratory Rate 12 14 Blood Pressure 107/67 99/61 L Pulse Oximetry 99 100 Intake & Output 09/07/18 09/08/18 09/08/18 18:59 06:59 18:59 Intake Total 360 / 360 100 / 100 120 / 120 Output Total 850 / 850 1100 / 1100 Balance -490 / -490 -1000 / -1000 120 / 120 Weight 52 kg Intake: IV 110 / 110 120 / 120 Calcium Gluconate Inj 2 GM In 110 / 110 120 / 120 NS Inj 100 ML @ 120 mls/hr IV. SIG ONCE ONE Rx#:[id number] Oral 250 / 250 100 / 100 Output: Urine 250 / 250 Stool 0 / 0 Urine/Stool Mix 0 / 0 Urine Amount (Catheter) 600 / 600 1100 / 1100 Indwelling Urethral Catheter 600 / 600 1100 / 1100 Other: Date of Last Bowel Movement 09/07/18 09/07/18 09/07/18 # Bowel Movements 1 0 # Incontinent Bowel Movements 0 Narrative: Heart sounds regular rate and rhythm, no murmurs Clear lungs bilaterally, unlabored breathing Lying in bed, awake, alert, no acute distress, appearing comfortable No carpal pedal spasms elicited - Urinary Catheter Management Indwelling Urethral Catheter Cath placed during this visit: yes Reason for continuing: Other continuation reason Insertion date: 09/07/18 Insertion time: 13:00 Results - Labs CBC & Chem 7: 09/08/18 05:27 09/08/18 03:57 Laboratory Results - last 24 hr 09/07/18 09/07/18 09/07/18 04:25 11:16 15:54 WBC RBC Hgb Hct MCV MCH MCHC RDW Plt Count MPV Neut % (Auto) Lymph % (Auto) [place] % (Auto) Eos % (Auto) Baso % (Auto) Neut # (Auto) Lymph # (Auto) [place] # (Auto) Eos # (Auto) Baso # (Auto) WBC Differential Differential Comment ESR PT INR Sodium Potassium Chloride Carbon Dioxide Anion Gap BUN Creatinine Estimated GFR POC Glucose 89 86 Random Glucose Calcium Calcium Adj for Albumin Phosphorus 3.3 Magnesium Total Bilirubin AST ALT Alkaline Phosphatase Total Protein Albumin TSH Free T4 09/07/18 09/08/18 09/08/18 20:18 03:57 03:57 WBC RBC Hgb Hct MCV MCH MCHC RDW Plt Count MPV Neut % (Auto) Lymph % (Auto) [place] % (Auto) Eos % (Auto) Baso % (Auto) Neut # (Auto) Lymph # (Auto) [place] # (Auto) Eos # (Auto) Baso # (Auto) WBC Differential Differential Comment ESR PT 12.0 H INR 1.2 Sodium 135 L Potassium 3.6 Chloride 101 Carbon Dioxide 26.2 Anion Gap 8 BUN 4 L Creatinine 1.05 Estimated GFR 86 L POC Glucose 129 H Random Glucose 71 L Calcium 5.1 L* Calcium Adj for Albumin 6.1 L* Phosphorus 3.2 Magnesium 1.6 Total Bilirubin 0.9 AST 25 ALT 15 Alkaline Phosphatase 138 H Total Protein 6.8 Albumin 2.8 L TSH 2.860 Free T4 1.23 09/08/18 09/08/18 09/08/18 05:20 05:27 07:31 WBC 6.4 RBC 3.73 L Hgb 9.7 L Hct 30.0 L MCV 80.5 MCH 25.9 L MCHC 32.2 RDW 17.1 Plt Count 207 MPV 7.7 Neut % (Auto) 66.4 Lymph % (Auto) 16.1 [place] % (Auto) 8.9 H Eos % (Auto) 7.2 H Baso % (Auto) 1.4 Neut # (Auto) 4.2 Lymph # (Auto) 1.0 [place] # (Auto) 0.6 Eos # (Auto) 0.5 H Baso # (Auto) 0.1 WBC Differential . Differential Comment Auto diff final ESR 35 H PT INR Sodium Potassium Chloride Carbon Dioxide Anion Gap BUN Creatinine Estimated GFR POC Glucose 80 72 Random Glucose Calcium Calcium Adj for Albumin Phosphorus Magnesium Total Bilirubin AST ALT Alkaline Phosphatase Total Protein Albumin TSH Free T4 - Imaging Impressions Abdomen/Pelvis CT 09/07/18 00:00 CONCLUSION: 1. Hepatic and renal cysts. 2. There is an exophytic mass arising off the upper pole of the left kidney suspicious for renal cell carcinoma until proven otherwise. Chest CT 09/07/18 00:00 CONCLUSION: 1. Left upper quadrant mass believed to arise off the upper pole of the left kidney measuring up to 6.9 cm. A renal cell carcinoma should be excluded. 2. Hepatic cysts. 3. Left renal cyst. 4. The density on the recent chest x-ray of the right lung base corresponds to left lobe of the liver. Assessment and Plan - Plan 63-year-old black male being admitted for symptomatic hypercalcemia Symptomatic hypocalcemia Still persistent, will order another 2 g of calcium gluconate, will increase calcium carbonate intake to 1000 mg 3 times a day along with aggressive vitamin D supplementation Vitamin D level still pending -Nephrology following, obtaining urine calcium studies Keep on telemetry -No obvious etiology is found otherwise on CT studies -trend bmp Secondary hyperparathyroidism -Secondary to hypercalcemia, tx above Hyponatremia and hyponatremia Resolved Possible renal cell carcinoma Based on CT scan, will need to follow-up with urology outpatient PT
--- NOTE | 2018-09-08 11:44 | P.PNNP ---
Subjective Interval history: Patient still has weakness denies nausea vomiting Physical Exam Vital signs: Vital Signs 09/07/18 12:00 09/07/18 13:00 09/07/18 14:00 Temperature Pulse Rate 59 L 71 59 L Respiratory Rate 14 14 15 Blood Pressure 91/60 L 130/75 107/64 Pulse Oximetry 100 100 100 09/07/18 15:00 09/07/18 16:00 09/07/18 17:00 Temperature 98.2 F Pulse Rate 64 73 70 Respiratory Rate 15 17 17 Blood Pressure 111/69 113/71 108/70 Pulse Oximetry 100 100 100 09/07/18 18:00 09/07/18 19:00 09/07/18 20:00 Temperature 99 F Pulse Rate 89 91 H 105 H Respiratory Rate 27 H 17 23 Blood Pressure 108/68 105/67 101/62 Pulse Oximetry 99 100 100 09/07/18 20:45 09/07/18 21:00 09/07/18 22:00 Temperature Pulse Rate 80 73 Respiratory Rate 18 17 Blood Pressure 103/67 100/65 Pulse Oximetry 100 100 100 09/07/18 23:00 09/08/18 00:00 09/08/18 00:06 Temperature 99.4 F Pulse Rate 76 81 78 Respiratory Rate 21 17 16 Blood Pressure 105/66 104/59 L 104/59 L Pulse Oximetry 100 100 100 09/08/18 01:00 09/08/18 02:00 09/08/18 03:00 Temperature Pulse Rate 67 68 61 Respiratory Rate 15 15 15 Blood Pressure 98/64 L 94/64 L 94/62 L Pulse Oximetry 100 100 100 09/08/18 04:00 09/08/18 05:00 09/08/18 05:51 Temperature 99.0 F Pulse Rate 69 65 86 Respiratory Rate 15 13 16 Blood Pressure 101/62 92/61 L 98/71 L Pulse Oximetry 100 100 100 09/08/18 06:00 09/08/18 07:00 09/08/18 08:00 Temperature 97.9 F Pulse Rate 70 81 90 Respiratory Rate 14 15 12 Blood Pressure 98/64 L 99/61 L 107/67 Pulse Oximetry 100 100 99 09/08/18 09:00 Temperature Pulse Rate 73 Respiratory Rate 14 Blood Pressure 99/61 L Pulse Oximetry 100 Intake & Output 09/07/18 09/08/18 09/08/18 18:59 06:59 18:59 Intake Total 360 / 360 100 / 100 120 / 120 Output Total 850 / 850 1100 / 1100 Balance -490 / -490 -1000 / -1000 120 / 120 Weight 52 kg Intake: IV 110 / 110 120 / 120 Calcium Gluconate Inj 2 GM In 110 / 110 120 / 120 NS Inj 100 ML @ 120 mls/hr IV. SIG ONCE ONE Rx#:[id number] Oral 250 / 250 100 / 100 Output: Urine 250 / 250 Stool 0 / 0 Urine/Stool Mix 0 / 0 Urine Amount (Catheter) 600 / 600 1100 / 1100 Indwelling Urethral Catheter 600 / 600 1100 / 1100 Other: Date of Last Bowel Movement 09/07/18 09/07/18 09/07/18 # Bowel Movements 1 0 # Incontinent Bowel Movements 0 Narrative: GENERAL: mal-nourished, well-developed patient. SKIN: Warm and dry. HEAD: Normocephalic. EYES: No scleral icterus. No injection or drainage. NECK: Supple, trachea midline. No JVD or lymphadenopathy. CARDIOVASCULAR: Regular rate and rhythm without murmurs, gallops, or rubs. RESPIRATORY: Breath sounds equal bilaterally. No accessory muscle use. GASTROINTESTINAL: Abdomen soft, non-tender, nondistended. EXTREMITIES: As above NEUROLOGICAL: Awake, alert, and oriented x 3. Non-focal. - Urinary Catheter Management Indwelling Urethral Catheter Cath placed during this visit: yes Reason for continuing: Other continuation reason Insertion date: 09/07/18 Insertion time: 13:00 Assessment and Plan - Assessment (1) Hypocalcemia Code(s): E83.51 - Hypocalcemia Status: Acute Plan: Etiology likely malignancy left renal mass on CT scan consult urology 24-hour urine for calcium losses check serum phosphorus Parathyroid hormone is high due to hypocalcemia, malignancy suspected on a CT of abdomen and pelvis left renal mass, multiple liver cysts question of malignancy Continue to replace calcium (2) Acute hyponatremia Code(s): E87.1 - Hypo-osmolality and hyponatremia Status: Acute Plan: Resolved due to dehydration (3) Acute hypokalemia Code(s): E87.6 - Hypokalemia Status: Acute Plan: Improved after replacement - Plan Multiple electrolyte imbalance due to poor nutrition/low albumin need to replace Give him Ensure Continue to monitor for improvement
[2018-09-08 13:53] LABS: Hemoglobin A1c 5.7 % (4.3-6.0)
--- NOTE | 2018-09-08 16:39 | ECG ---
Date Performed: 09/06/2018 Time Performed: 18:10:33 PTAGE: 63 years EKG: Sinus rhythm PROLONGED QT INTERVAL Since the previous tracing, no significant change noted ABNORMAL ECG PREVIOUS TRACING : 09/06/2018 09.25 DOCTOR: Aniceto Gavin Interpretating Date/Time 09/08/2018 16:36:51
--- NOTE | 2018-09-08 17:58 | P.CONURO ---
History of Present Illness Service: Consult date: 09/08/18 Requesting Physician: Brown Funez Reason for Consult: Left renal mass Primary Care Provider: UNKNOWN Chief Complaint: Weakness History of Present Illness: 63-year-old gentleman admitted for management of symptomatic hypocalcemia. During the course of his hospitalization a CT scan of the abdomen and pelvis was performed that demonstrated a 6.2 cm left upper pole renal mass. A urology consult was placed to further evaluate this finding. I reviewed the actual CT scan images and concur with the radiologist impression. At the time of consultation the patient was resting comfortably in bed and in no acute distress. He denies flank pain or gross hematuria. He denied a history of prior urologic disease. Review of Systems All other systems reviewed negative except as stated in HPI PMF - History History Provided By: Patient - Medical History Medical History: Medical History (Last Reviewed 09/07/18 @ 11:14 by Brown Funez MD) Patient denies medical problems - Surgical History Surgical History: Surgical History (Last Reviewed 09/07/18 @ 11:14 by Brown Funez MD) No history of previous surgery - Family History Family History: Family History (Last Reviewed 09/07/18 @ 11:14 by Brown Funez MD) Other Patient denies significant medical history - Tobacco History Second Hand Smoke Exposure: No Tobacco Use In Past 30 Days: No Smoking Status: Former smoker Tobacco Type: Cigarettes - Alcohol History How Often Do You Have a Drink Containing Alcohol: Never - Substance Use History Substance History: No History of Abuse - Travel History Recent Travel in the [place] Within the Last 8 Weeks: No Recent Travel Out of the Country Within the Last 8 Weeks: No - Immunization History Tetanus Immunization: >5 Years Medications and Allergies Active Medications: Active Medications Calcium Carbonate (Tums Chew) 1,000 mg CHEW TIDWM [facility] Last Admin: 09/08/18 08:01 Dose: 1,000 mg Dextrose (D50w Vial) 50 ml IV.PUSH UNSCH PRN PRN Reason: PER HYPOGLYCEMIA PROTOCOL Glucagon (Glucagon Inj) 1 mg OTHER PRN PRN PRN Reason: for Hypoglycemia Protocol Magnesium Sulfate 4 gm/ Sodium (Chloride) 100 mls @ 50 mls/hr IV.SIG UNSCH PRN PRN Reason: For Magnesium 0.9 - 1.1 mg/dL Magnesium Sulfate 2 gm/ Sodium (Chloride) 100 mls @ 50 mls/hr IV.SIG UNSCH PRN PRN Reason: For Magnesium 1.2 - 1.6 mg/dL Potassium Chloride (Kcl 20 Meq Premix Inj) 20 meq in 100 mls @ 50 mls/hr IV.SIG Q2H PRN PRN Reason: For Potassium 3.3 - 3.5 mEq/L Potassium Chloride (Kcl 40 Meq Premix Inj) 40 meq in 100 mls @ 25 mls/hr IV.SIG UNSCH PRN PRN Reason: For Potassium 3.3 - 3.5 mEq/L Potassium Chloride (Kcl 20 Meq Premix Inj) 20 meq in 100 mls @ 50 mls/hr IV.SIG Q2H PRN PRN Reason: For Potassium 2.8 - 3.2 mEq/L Potassium Phosphate 30 mmol/ (Sodium Chloride) 260 mls @ 42 mls/hr IV.SIG UNSCH PRN PRN Reason: SEE LABEL COMMENTS Sodium Phosphate 30 mmol/ (Sodium Chloride) 260 mls @ 42 mls/hr IV.SIG UNSCH PRN PRN Reason: For Phosphorus < 2.5 mg/dL Potassium Chloride (Kcl 40 Meq Premix Inj) 40 meq in 100 mls @ 25 mls/hr IV.SIG Q2H PRN PRN Reason: For Potassium 2.8 - 3.2 mEq/L Insulin Human Regular (Novolin R Correctional Sugar Inj) 0 units SQ Q4HR ANIL; Protocol Last Admin: 09/08/18 15:45 Dose: Not Given Magnesium Oxide (Mag-Ox) 800 mg PO UNSCH PRN PRN Reason: For Magnesium 1.2 - 1.6 mg/dL Potassium Bicarb/Potassium Chloride (K-Lyte Cl Eff) 50 meq PO UNSCH PRN PRN Reason: For Potassium 3.3 - 3.5 mEq/L Potassium Phosphate (K-Phos Original) 2,000 mg PO Q4H PRN PRN Reason: Phosphorus Less Than 2.5 mg/dL Potassium Phosphate (K-Phos Original) 2,000 mg PO UNSCH PRN PRN Reason: SEE LABEL COMMENTS Sodium Chloride (Ns Flush) 2 ml IV.FLUSH BID ANIL Last Admin: 09/08/18 08:01 Dose: 2 ml Sodium Chloride (Ns Flush) 2 ml IV.FLUSH PRN PRN PRN Reason: FLUSH AFTER USING IV ACCESS Last Admin: 09/08/18 08:01 Dose: 2 ml Vitamin D (Vitamin D3) 5,000 unit PO DAILY ANIL Last Admin: 09/08/18 08:01 Dose: 5,000 unit Allergies Allergy/AdvReac Type Severity Reaction Status Date / Time No Known Allergies Allergy Verified 09/06/18 09:20 Home Medications Medication Instructions Recorded Confirmed Type No Known Home Medications 09/06/18 09/06/18 History Physical Exam Vital Signs - 24 hr 09/07/18 18:00 09/07/18 19:00 09/07/18 20:00 Temperature 99 F Pulse Rate 89 91 H 105 H Respiratory Rate 27 H 17 23 Blood Pressure 108/68 105/67 101/62 Pulse Oximetry 99 100 100 09/07/18 20:45 09/07/18 21:00 09/07/18 22:00 Temperature Pulse Rate 80 73 Respiratory Rate 18 17 Blood Pressure 103/67 100/65 Pulse Oximetry 100 100 100 09/07/18 23:00 09/08/18 00:00 09/08/18 00:06 Temperature 99.4 F Pulse Rate 76 81 78 Respiratory Rate 21 17 16 Blood Pressure 105/66 104/59 L 104/59 L Pulse Oximetry 100 100 100 09/08/18 01:00 09/08/18 02:00 09/08/18 03:00 Temperature Pulse Rate 67 68 61 Respiratory Rate 15 15 15 Blood Pressure 98/64 L 94/64 L 94/62 L Pulse Oximetry 100 100 100 09/08/18 04:00 09/08/18 05:00 09/08/18 05:51 Temperature 99.0 F Pulse Rate 69 65 86 Respiratory Rate 15 13 16 Blood Pressure 101/62 92/61 L 98/71 L Pulse Oximetry 100 100 100 09/08/18 06:00 09/08/18 07:00 09/08/18 08:00 Temperature 97.9 F Pulse Rate 70 81 90 Respiratory Rate 14 15 12 Blood Pressure 98/64 L 99/61 L 107/67 Pulse Oximetry 100 100 99 09/08/18 09:00 09/08/18 10:00 09/08/18 11:00 Temperature Pulse Rate 73 71 59 L Respiratory Rate 14 15 13 Blood Pressure 99/61 L 98/65 L Pulse Oximetry 100 100 100 09/08/18 11:06 09/08/18 12:00 09/08/18 13:00 Temperature Pulse Rate 91 H 78 85 Respiratory Rate 15 14 20 Blood Pressure 93/64 L 109/68 107/70 Pulse Oximetry 100 100 100 09/08/18 14:00 09/08/18 15:00 09/08/18 16:00 Temperature Pulse Rate 77 78 68 Respiratory Rate 14 17 21 Blood Pressure 103/70 108/69 Pulse Oximetry 100 100 100 09/08/18 16:01 Temperature 98.1 F Pulse Rate 62 Respiratory Rate 14 Blood Pressure 118/65 Pulse Oximetry 100 Physical Exam: GENERAL: This is a well-nourished, well-developed patient, in no apparent distress. SKIN: No rashes, ecchymoses or lesions. Cool and dry. HEAD: Atraumatic. Normocephalic. No temporal or scalp tenderness. EYES: Pupils equal round and reactive. Extraocular motions intact. No scleral icterus. No injection or drainage. ENT: Nose without bleeding, purulent drainage or septal hematoma. Throat without erythema, tonsillar hypertrophy or exudate. Uvula midline. Airway patent. NECK: Trachea midline. No JVD or lymphadenopathy. Supple, nontender, no meningeal signs. GASTROINTESTINAL: Abdomen soft, non-tender, nondistended. No hepato-splenomegaly , or palpable masses. No guarding. GENITOURINARY: No CVA tenderness, bladder not distended, indwelling Cordero draining clear yellow urine MUSCULOSKELETAL: Extremities without clubbing, cyanosis, or edema. No joint tenderness, effusion, or edema noted. No calf tenderness. Negative Homans sign bilaterally. NEUROLOGICAL: Awake and alert. Cranial nerves II through XII intact. Motor and sensory grossly within normal limits. Five out of 5 muscle strength in all muscle groups. Normal speech. Laboratory Results - last 24 hr 09/07/18 09/08/18 09/08/18 20:18 03:57 03:57 WBC RBC Hgb Hct MCV MCH MCHC RDW Plt Count MPV Neut % (Auto) Lymph % (Auto) [place] % (Auto) Eos % (Auto) Baso % (Auto) Neut # (Auto) Lymph # (Auto) [place] # (Auto) Eos # (Auto) Baso # (Auto) WBC Differential Differential Comment ESR PT 12.0 H INR 1.2 Sodium Potassium Chloride Carbon Dioxide Anion Gap BUN Creatinine Estimated GFR POC Glucose 129 H Random Glucose Hemoglobin A1c 5.7 Calcium Calcium Adj for Albumin Phosphorus Magnesium Total Bilirubin AST ALT Alkaline Phosphatase Total Protein Albumin TSH Free T4 Ur 24 Hour Volume Ur Calcium 24 Hr 09/08/18 09/08/18 09/08/18 03:57 05:20 05:27 WBC 6.4 RBC 3.73 L Hgb 9.7 L Hct 30.0 L MCV 80.5 MCH 25.9 L MCHC 32.2 RDW 17.1 Plt Count 207 MPV 7.7 Neut % (Auto) 66.4 Lymph % (Auto) 16.1 [place] % (Auto) 8.9 H Eos % (Auto) 7.2 H Baso % (Auto) 1.4 Neut # (Auto) 4.2 Lymph # (Auto) 1.0 [place] # (Auto) 0.6 Eos # (Auto) 0.5 H Baso # (Auto) 0.1 WBC Differential . Differential Comment Auto diff final ESR 35 H PT INR Sodium 135 L Potassium 3.6 Chloride 101 Carbon Dioxide 26.2 Anion Gap 8 BUN 4 L Creatinine 1.05 Estimated GFR 86 L POC Glucose 80 Random Glucose 71 L Hemoglobin A1c Calcium 5.1 L* Calcium Adj for Albumin 6.1 L* Phosphorus 3.2 Magnesium 1.6 Total Bilirubin 0.9 AST 25 ALT 15 Alkaline Phosphatase 138 H Total Protein 6.8 Albumin 2.8 L TSH 2.860 Free T4 1.23 Ur 24 Hour Volume Ur Calcium 24 Hr 09/08/18 09/08/18 09/08/18 07:31 11:27 12:59 WBC RBC Hgb Hct MCV MCH MCHC RDW Plt Count MPV Neut % (Auto) Lymph % (Auto) [place] % (Auto) Eos % (Auto) Baso % (Auto) Neut # (Auto) Lymph # (Auto) [place] # (Auto) Eos # (Auto) Baso # (Auto) WBC Differential Differential Comment ESR PT INR Sodium Potassium Chloride Carbon Dioxide Anion Gap BUN Creatinine Estimated GFR POC Glucose 72 78 Random Glucose Hemoglobin A1c Calcium Calcium Adj for Albumin Phosphorus Magnesium Total Bilirubin AST ALT Alkaline Phosphatase Total Protein Albumin TSH Free T4 Ur 24 Hour Volume 1410 Ur Calcium 24 Hr Less than 70 09/08/18 15:30 WBC RBC Hgb Hct MCV MCH MCHC RDW Plt Count MPV Neut % (Auto) Lymph % (Auto) [place] % (Auto) Eos % (Auto) Baso % (Auto) Neut # (Auto) Lymph # (Auto) [place] # (Auto) Eos # (Auto) Baso # (Auto) WBC Differential Differential Comment ESR PT INR Sodium Potassium Chloride Carbon Dioxide Anion Gap BUN Creatinine Estimated GFR POC Glucose 99 Random Glucose Hemoglobin A1c Calcium Calcium Adj for Albumin Phosphorus Magnesium Total Bilirubin AST ALT Alkaline Phosphatase Total Protein Albumin TSH Free T4 Ur 24 Hour Volume Ur Calcium 24 Hr Result Diagrams: 09/08/18 05:27 09/08/18 03:57 Imaging: ITS Impressions Chest X-Ray 09/06/18 09:57 CONCLUSION: No acute cardiopulmonary abnormality is identified. Abdomen/Pelvis CT 09/07/18 00:00 CONCLUSION: 1. Hepatic and renal cysts. 2. There is an exophytic mass arising off the upper pole of the left kidney suspicious for renal cell carcinoma until proven otherwise. Chest CT 09/07/18 00:00 CONCLUSION: 1. Left upper quadrant mass believed to arise off the upper pole of the left kidney measuring up to 6.9 cm. A renal cell carcinoma should be excluded. 2. Hepatic cysts. 3. Left renal cyst. 4. The density on the recent chest x-ray of the right lung base corresponds to left lobe of the liver. Assessment and Plan - Assessment (1) Renal mass, left Code(s): N28.89 - Other specified disorders of kidney and ureter Status: Acute - Plan Urologic impression: 6.2 cm left upper pole renal mass suspicious for malignancy Recommendations: 1. Patient to have interventional radiology perform a percutaneous biopsy of this mass once medically stable 2. This can be done as an outpatient. 3. Will be available as needed during present hospitalization.
[2018-09-08 21:34] LABS: Calcium 5.4 mg/dL (8.5-10.1); Potassium 3.8 meq/L (3.5-5.1)
[2018-09-08 21:48] LABS: Albumin 2.8 g/dL (3.4-5.0)
[2018-09-08 21:58] LABS: Calcium-Albumin Corrected 6.4 mg/dL (8.5-10.1)
[2018-09-08] MEDS ORDERED: Calcium Gluconate Inj 1 GM in Dextrose 5% in Water Inj 100 ML IV.SIG ONE ×2 (22:21)
[2018-09-09] MEDS: Insulin NovoLIN Regular Correctional Sugar Inj SQ SCH ×5 (01:03→23:25)
[2018-09-09 07:53] LABS: Anion Gap 9 meq/L (5-15); Blood Urea Nitrogen 4 mg/dL (7-18); Calcium 5.6 mg/dL (8.5-10.1); Carbon Dioxide 26.1 meq/L (21.0-32.0); Chloride 102 meq/L (98-107); Glomerular Filtration Rate Greater Than 89 mL/min (>89); Glucose,Random 66 mg/dL (74-106); Potassium 3.8 meq/L (3.5-5.1); Sodium 137 meq/L (136-145)
[2018-09-09 08:11] LABS: Albumin 2.7 g/dL (3.4-5.0)
[2018-09-09 08:18] LABS: Calcium-Albumin Corrected 6.6 mg/dL (8.5-10.1)
[2018-09-09] MEDS ORDERED: Potassium Chloride Inj 20 MEQ, Magnesium Sulfate Inj 2 GM in Sod Chloride 0.9% Inj 1,00... IV.SIG ONE (12:00)
--- NOTE | 2018-09-09 15:49 | P.PN ---
Subjective Interval history: Nursing reports patient did have to receive IV calcium gluconate yesterday evening due to persistently low levels. Patient himself says he feels a little better than yesterday. Otherwise denies any acute complaints. No chest pain, no shortness of breath. Physical Exam Vital signs: Vital Signs 09/08/18 16:00 09/08/18 16:01 09/08/18 17:00 Temperature 98.1 F Pulse Rate 68 62 84 Respiratory Rate 21 14 26 H Blood Pressure 118/65 Pulse Oximetry 100 100 100 09/08/18 17:01 09/08/18 18:00 09/08/18 19:00 Temperature Pulse Rate 74 74 64 Respiratory Rate 18 19 14 Blood Pressure 122/65 109/67 106/71 Pulse Oximetry 98 100 100 09/08/18 20:00 09/08/18 21:00 09/08/18 22:00 Temperature 97.5 F L Pulse Rate 78 71 74 Respiratory Rate 15 15 13 Blood Pressure 108/70 Pulse Oximetry 100 09/08/18 23:00 09/08/18 23:19 09/08/18 23:29 Temperature Pulse Rate 78 67 78 Respiratory Rate 15 15 15 Blood Pressure 109/73 109/73 Pulse Oximetry 100 100 09/09/18 00:00 09/09/18 01:00 09/09/18 02:00 Temperature Pulse Rate 60 62 59 L Respiratory Rate 15 14 18 Blood Pressure Pulse Oximetry 09/09/18 03:00 09/09/18 04:00 09/09/18 04:27 Temperature 98.0 F Pulse Rate 65 63 84 Respiratory Rate 14 30 H 14 Blood Pressure 110/69 110/69 Pulse Oximetry 100 09/09/18 05:00 09/09/18 06:00 09/09/18 07:00 Temperature Pulse Rate 62 82 96 H Respiratory Rate 13 24 34 H Blood Pressure Pulse Oximetry 09/09/18 08:00 09/09/18 09:00 09/09/18 09:51 Temperature 98.4 F Pulse Rate 59 L 104 H 98 H Respiratory Rate 12 28 H 22 Blood Pressure 104/72 Pulse Oximetry 99 09/09/18 09:56 09/09/18 09:57 09/09/18 10:00 Temperature Pulse Rate 96 H 111 H 103 H Respiratory Rate 13 15 14 Blood Pressure 107/69 110/65 Pulse Oximetry 09/09/18 12:00 Temperature 98.0 F Pulse Rate 75 Respiratory Rate 20 Blood Pressure 124/81 Pulse Oximetry 100 Intake & Output 09/08/18 09/09/18 09/09/18 18:59 06:59 18:59 Intake Total 620 / 620 290 / 290 Output Total 425 / 425 200 / 200 Balance 195 / 195 90 / 90 Weight 52.1 kg Intake: IV 120 / 120 110 / 110 Calcium Gluconate Inj 1 GM In 110 / 110 D5W Inj 100 ML @ 110 mls/hr IV. SIG ONCE ONE Rx#:[id number] Calcium Gluconate Inj 2 GM In 120 / 120 NS Inj 100 ML @ 120 mls/hr IV. 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 - Urinary Catheter Management Indwelling Urethral Catheter Cath placed during this visit: yes, but has since been removed by the nurse Reason for continuing: Other continuation reason Insertion date: 09/07/18 Insertion time: 13:00 Removal date: 09/08/18 Removal time: 13:39 Results - Labs CBC & Chem 7: 09/08/18 05:27 09/09/18 17:07 Laboratory Results - last 24 hr 09/06/18 09/06/18 09/08/18 20:30 20:30 20:53 Sodium 134 L Potassium 3.8 Chloride 99 Carbon Dioxide 26.0 Anion Gap 9 BUN 5 L Creatinine 1.23 Estimated GFR 72 L POC Glucose Random Glucose 106 Calcium 5.4 L* Calcium Adj for Albumin 6.4 L* Albumin 2.8 L Vitamin D 25-Hydroxy 7.0 L Misc Test Result Cancelled Misc Test Comment Cancelled 09/08/18 09/09/18 21:16 06:32 Sodium 137 Potassium 3.8 Chloride 102 Carbon Dioxide 26.1 Anion Gap 9 BUN 4 L Creatinine 0.95 Estimated GFR Greater than 89 POC Glucose 99 Random Glucose 66 L Calcium 5.6 L* Calcium Adj for Albumin 6.6 L* Albumin 2.7 L Vitamin D 25-Hydroxy Misc Test Result Misc Test Comment Assessment and Plan - Plan 63-year-old black male being admitted for symptomatic hypercalcemia Symptomatic hypocalcemia Still persistent, continue to give IV calcium gluconate, continue high protein intake, aggressive oral calcium carbonate and vitamin D supplementation Does not seem to be losing any calcium in his urine Vitamin D level and ionized calcium levels are still pending -Nephrology following, obtaining urine calcium studies Keep on telemetry -No obvious etiology is found otherwise on CT studies -trend bmp Secondary hyperparathyroidism -Secondary to hypocalcemia, tx above Possible renal cell carcinoma Follow-up with urology outpatient PT
[2018-09-09 18:33] LABS: Anion Gap 8 meq/L (5-15); Blood Urea Nitrogen 4 mg/dL (7-18); Calcium 5.9 mg/dL (8.5-10.1); Carbon Dioxide 24.9 meq/L (21.0-32.0); Chloride 101 meq/L (98-107); Glomerular Filtration Rate Greater Than 89 mL/min (>89); Glucose,Random 71 mg/dL (74-106); Sodium 134 meq/L (136-145)
[2018-09-09 18:43] LABS: Albumin 3.1 g/dL (3.4-5.0)
[2018-09-09 18:47] LABS: Calcium-Albumin Corrected 6.6 mg/dL (8.5-10.1)
[2018-09-09 19:16] LABS: Bacteria,Urine Occasional /hpf; Bilirubin,Urine Negative (Negative); Clarity,Urine Clear (Clear); Color,Urine Yellow (Yellw/Straw); Glucose,Urine (UA) Negative (Negative); Leukocyte Esterase,Urine Negative (Negative); Mucus,Urine Few /lpf (Occasional); Nitrite,Urine Negative (Negative); Specific Gravity,Urine 1.006 (1.002-1.035); Squamous Epithelial Cell,Urine <1 /hpf (0-5)
[2018-09-09] MEDS ORDERED: Calcium Gluconate Inj 2 GM in Dextrose 5% in Water Inj 100 ML IV.SIG ONE ×2 (20:18)
[2018-09-10] MEDS: Insulin NovoLIN Regular Correctional Sugar Inj SQ SCH ×6 (04:23→23:37)
[2018-09-10 07:15] LABS: Anion Gap 12 meq/L (5-15); Blood Urea Nitrogen 4 mg/dL (7-18); Calcium 5.8 mg/dL (8.5-10.1); Carbon Dioxide 23.5 meq/L (21.0-32.0); Chloride 103 meq/L (98-107); Glomerular Filtration Rate Greater Than 89 mL/min (>89); Glucose,Random 60 mg/dL (74-106); Potassium 4.5 meq/L (3.5-5.1); Sodium 138 meq/L (136-145)
[2018-09-10 07:24] LABS: Albumin 2.6 g/dL (3.4-5.0)
[2018-09-10 07:32] LABS: Calcium-Albumin Corrected 6.9 mg/dL (8.5-10.1)
--- NOTE | 2018-09-10 08:17 | P.PN ---
Subjective Interval history: awake and alert up - sitting side of the bed having breakfast good po denies any back pain, dysuria or urgency unable to tolerate any milk or ensure Physical Exam Vital signs: Vital Signs 09/09/18 09:00 09/09/18 09:51 09/09/18 09:56 Temperature Pulse Rate 104 H 98 H 96 H Respiratory Rate 28 H 22 13 Blood Pressure 104/72 107/69 Pulse Oximetry 09/09/18 09:57 09/09/18 10:00 09/09/18 12:00 Temperature 98.0 F Pulse Rate 111 H 103 H 75 Respiratory Rate 15 14 20 Blood Pressure 110/65 124/81 Pulse Oximetry 100 09/09/18 14:00 09/09/18 15:00 09/09/18 16:00 Temperature 98.0 F Pulse Rate 66 63 68 Respiratory Rate 18 Blood Pressure 107/72 Pulse Oximetry 100 09/09/18 16:41 09/09/18 17:00 09/09/18 18:00 Temperature Pulse Rate 64 56 L Respiratory Rate Blood Pressure Pulse Oximetry 100 09/09/18 19:00 09/09/18 20:00 09/09/18 20:53 Temperature 98.9 F Pulse Rate 57 L 56 L Respiratory Rate 16 Blood Pressure 113/78 Pulse Oximetry 100 98 09/09/18 21:00 09/09/18 22:00 09/09/18 23:00 Temperature Pulse Rate 58 L 56 L 60 Respiratory Rate Blood Pressure Pulse Oximetry 09/10/18 00:00 09/10/18 01:00 09/10/18 02:00 Temperature 98.2 F Pulse Rate 58 L 75 66 Respiratory Rate 18 Blood Pressure 110/78 Pulse Oximetry 98 09/10/18 03:00 09/10/18 04:00 09/10/18 05:00 Temperature 98.2 F Pulse Rate 65 65 77 Respiratory Rate 16 Blood Pressure 109/70 Pulse Oximetry 99 09/10/18 06:00 Temperature Pulse Rate 62 Respiratory Rate Blood Pressure Pulse Oximetry Intake & Output 09/09/18 09/10/18 09/10/18 18:59 06:59 18:59 Intake Total 720 / 720 1374 / 1374 Output Total 300 / 300 800 / 800 Balance 420 / 420 574 / 574 Weight 50.9 kg Intake: IV 1134 / 1134 Calcium Gluconate Inj 2 GM In 120 / 120 D5W Inj 100 ML @ 120 mls/hr IV. SIG ONCE ONE Rx#:[id number] KCl Inj 20 MEQ Magnesium 1014 / 1014 Sulfate Inj 2 GM In NS Inj 1, 000 ML @ 500 mls/hr IV.SIG ONCE ONE Rx#:[id number] Oral 720 / 720 240 / 240 Output: Urine 300 / 300 800 / 800 Other: Date of Last Bowel Movement 09/08/18 Narrative: awake and alert , speech soft but clear Regular rate and rhythm No lower extremity edema Clear lungs bilaterally, no rales no wheezes 5/5 proximal upper extremity strength no edema - Urinary Catheter Management Indwelling Urethral Catheter Cath placed during this visit: yes, but has since been removed by the nurse Reason for continuing: Other continuation reason Insertion date: 09/07/18 Insertion time: 13:00 Removal date: 09/08/18 Removal time: 13:39 Results - Labs CBC & Chem 7: 09/11/18 12:57 09/11/18 05:33 Laboratory Results - last 24 hr 09/09/18 09/09/18 09/09/18 06:32 17:07 18:15 Sodium 134 L Potassium 4.0 Chloride 101 Carbon Dioxide 24.9 Anion Gap 8 BUN 4 L Creatinine 0.96 Estimated GFR Greater than 89 Random Glucose 71 L Calcium 5.9 L* Calcium Adj for Albumin 6.6 L* 6.6 L* Albumin 2.7 L 3.1 L Urine Color Yellow Urine Clarity Clear Urine pH 7.0 Ur Specific [place] 1.006 Urine Protein Negative Urine Glucose (UA) Negative Urine Ketones Trace H Urine Occult Blood Small H Urine Nitrate Negative Urine Bilirubin Negative Urine Urobilinogen Less than 2 Ur Leukocyte Esterase Negative Urine RBC 3 Urine WBC 2 Ur Squamous Epith Cells <1 Urine Bacteria Occasional H Urine Mucus Few H Micro UA Comment Culture not ind Ur Microscopic Review Not Reportable Urine Culture Comments Culture not ind 09/10/18 04:57 Sodium 138 Potassium 4.5 Chloride 103 Carbon Dioxide 23.5 Anion Gap 12 BUN 4 L Creatinine 0.87 Estimated GFR Greater than 89 Random Glucose 60 L Calcium 5.8 L* Calcium Adj for Albumin 6.9 L* Albumin 2.6 L Urine Color Urine Clarity Urine pH Ur Specific [place] Urine Protein Urine Glucose (UA) Urine Ketones Urine Occult Blood Urine Nitrate Urine Bilirubin Urine Urobilinogen Ur Leukocyte Esterase Urine RBC Urine WBC Ur Squamous Epith Cells Urine Bacteria Urine Mucus Micro UA Comment Ur Microscopic Review Urine Culture Comments Assessment and Plan - Plan 63-year-old black male being admitted for symptomatic hypercalcemia Persistent hypocalcemia Still persistent, given IV calcium gluconate last evening- start Calcium drip - 10 amps Calcium gluvonate in D5W 1 L to run for 50 cc/hr- d/w Pharmacy x 1 bag - monitor Calcium level q 4 while on this x 24 hours - continue high protein intake, aggressive oral calcium carbonate and vitamin D supplementation Does not seem to be losing any calcium in his urine -Nephrology following Keep on telemetry -No obvious etiology is found otherwise on CT studies -trend bmp -start Calcitriol 0.25 mcg po daily x 7 days Secondary hyperparathyroidism -Secondary to hypocalcemia, tx above Possible renal cell carcinoma IR consult for left renal biopsy Severe protein calorie malnutritiom - dietitian ff PT daily Dietitian consult- seems to not tolerate ensure and ? lactose intolerance- with hypocalcemia
[2018-09-10] MEDS ORDERED: DEXTROSE 5% IV.SIG ONE ×2 (10:00)
[2018-09-10] MEDS ORDERED: CALCIUM GLUCONATE IV.SIG ONE ×2 (10:00)
[2018-09-10] MEDS ORDERED: WATER IV.SIG ONE ×2 (10:00)
[2018-09-10] MEDS: Calcitriol 0.25 MCG Capsule PO SCH (10:01)
[2018-09-11] MEDS: Insulin NovoLIN Regular Correctional Sugar Inj SQ SCH ×5 (04:18→20:31)
[2018-09-11 07:36] LABS: Anion Gap 9 meq/L (5-15); Blood Urea Nitrogen 4 mg/dL (7-18); Carbon Dioxide 25.4 meq/L (21.0-32.0); Chloride 98 meq/L (98-107); Glomerular Filtration Rate Greater Than 89 mL/min (>89); Glucose,Random 75 mg/dL (74-106); Potassium 4.1 meq/L (3.5-5.1); Sodium 132 meq/L (136-145)
[2018-09-11] MEDS ORDERED: fentaNYL Citrate Inj 250 MCG/5 ML Ampul ONE (08:21)
--- NOTE | 2018-09-11 08:43 | P.PN ---
Subjective Interval history: had a good night no complains telemetry in Physical Exam Vital signs: Vital Signs 09/10/18 09:00 09/10/18 10:00 09/10/18 11:00 Temperature 98.0 F Pulse Rate 92 H 82 97 H Respiratory Rate 18 Blood Pressure 111/78 Pulse Oximetry 98 09/10/18 12:00 09/10/18 13:00 09/10/18 14:00 Temperature Pulse Rate 114 H 106 H 108 H Respiratory Rate Blood Pressure Pulse Oximetry 09/10/18 15:00 09/10/18 16:00 09/10/18 17:00 Temperature 98.2 F Pulse Rate 97 H 90 64 Respiratory Rate 18 Blood Pressure 109/68 Pulse Oximetry 96 09/10/18 18:00 09/10/18 19:00 09/10/18 20:00 Temperature 98.6 F Pulse Rate 72 59 L 57 L Respiratory Rate 16 Blood Pressure 107/74 Pulse Oximetry 100 09/10/18 21:00 09/10/18 22:00 09/10/18 23:00 Temperature 98.4 F Pulse Rate 59 L 62 60 Respiratory Rate 16 Blood Pressure 105/61 Pulse Oximetry 100 09/11/18 00:00 09/11/18 01:00 09/11/18 02:00 Temperature Pulse Rate 56 L 58 L 56 L Respiratory Rate Blood Pressure Pulse Oximetry 09/11/18 03:00 09/11/18 04:00 09/11/18 05:00 Temperature 98.2 F Pulse Rate 57 L 88 66 Respiratory Rate 14 Blood Pressure 118/62 Pulse Oximetry 100 09/11/18 06:00 09/11/18 07:00 Temperature 98.1 F Pulse Rate 67 77 Respiratory Rate 18 Blood Pressure 111/69 Pulse Oximetry 100 Intake & Output 09/10/18 09/11/18 09/11/18 18:59 06:59 18:59 Intake Total 840 / 840 2970 / 2970 Output Total 325 / 325 2150 / 2150 Balance 515 / 515 820 / 820 Weight 50.9 kg Intake: IV 1050 / 1050 Calcium Gluconate Inj 10 GM In 1050 / 1050 D5W Inj 950 ML @ 50 mls/hr IV. SIG ONCE ONE Rx#:[id number] Oral 840 / 840 1920 / 1920 Output: Urine 325 / 325 2150 / 2150 Other: # Voids 2 Date of Last Bowel Movement 09/11/18 09/11/18 # Bowel Movements 1 Narrative: awake and alert , speech soft but clear Regular rate and rhythm No lower extremity edema Clear lungs bilaterally, no rales no wheezes abdomen soft, no CVA tenderness - Urinary Catheter Management Indwelling Urethral Catheter Cath placed during this visit: yes, but has since been removed by the nurse Reason for continuing: Other continuation reason Insertion date: 09/07/18 Insertion time: 13:00 Removal date: 09/08/18 Removal time: 13:39 Results - Labs CBC & Chem 7: 09/11/18 12:57 09/11/18 05:33 Laboratory Results - last 24 hr 09/10/18 09/10/18 09/10/18 13:22 18:16 20:08 Sodium Potassium Chloride Carbon Dioxide Anion Gap BUN Creatinine Estimated GFR POC Glucose 152 H 89 Random Glucose Calcium 6.6 L* D 09/10/18 09/10/18 09/11/18 21:41 23:01 00:39 Sodium Potassium Chloride Carbon Dioxide Anion Gap BUN Creatinine Estimated GFR POC Glucose 87 Random Glucose Calcium 7.4 L* D 7.6 L 09/11/18 09/11/18 05:33 05:33 Sodium 132 L Potassium 4.1 Chloride 98 Carbon Dioxide 25.4 Anion Gap 9 BUN 4 L Creatinine 0.99 Estimated GFR Greater than 89 POC Glucose Random Glucose 75 Calcium 8.0 L Cancelled Assessment and Plan - Plan 63-year-old black male being admitted for symptomatic hypercalcemia Persistent hypocalcemia- level up - from 5.6 on admission this early am- 8.0 S/P Calcium 10amps in 1L NS drip completed this 8 am - monitor Calcium level q 4 while on this x 24 hours- next level due at 9 am - continue high protein intake, aggressive oral calcium carbonate and vitamin D supplementation Does not seem to be losing any calcium in his urine -Nephrology following Keep on telemetry -No obvious etiology is found otherwise on CT studies -trend bmp -start Calcitriol 0.25 mcg po daily x 7 days Secondary hyperparathyroidism -Secondary to hypocalcemia, tx above Possible renal cell carcinoma IR consulted= going for left renal biopsy today Severe protein calorie malnutritiom - dietitian ff/consult PT daily
--- NOTE | 2018-09-11 11:00 | P.RAD ---
Post CT Procedure Prog Note - Pre Procedure Diagnosis (1) Renal mass, left - Post Procedure Diagnosis (1) Renal mass, left - Procedure Information Procedure Date: 09/11/18 Supervising Radiologist: Mendez Driver MD Anesthesia: Conscious Sedation - Plan of Activity Patient to Unit: Nursing Unit Patient condition: Fair See PACS Report for procedural detail/treatment. Biopsy CT left Kidney Specimen: Core Biopsy
[2018-09-11 11:19] LABS: Baso # (Auto) 0.1 th/mm3 (0.0-0.2); Baso % (Auto) 1.2 % (0.0-2.0); Eos # (Auto) 0.7 th/mm3 (0.0-0.4); Eos % (Auto) 13.3 % (0.0-4.0); Hematocrit 30.2 % (39.0-51.0); Hemoglobin 9.7 gm/dL (13.0-17.0); Lymph # (Auto) 1.1 th/mm3 (1.0-4.8); Mean Corpuscular HGB Conc 32.2 % (32.0-36.0); Mean Corpuscular Hemoglobin 26.6 pg (27.0-34.0); Mean Corpuscular Volume 82.7 fL (80.0-100.0); Mean Platelet Volume 7.6 fL (7.0-11.0); Mono # (Auto) 0.5 th/mm3 (0.0-0.9); Neut % (Auto) 56.5 % (16.0-70.0); Platelet Count 230 th/mm3 (150-450); Red Blood Count 3.64 mil/mm3 (4.50-5.90); Red Cell Distribution Width 17.2 % (11.6-17.2); White Blood Count 5.3 th/mm3 (4.0-11.0)
--- NOTE | 2018-09-11 12:15 | P.PNNP ---
Subjective Interval history: Patient 63-year-old male with renal mass which has been biopsied Left kidney Physical Exam Vital signs: Vital Signs 09/10/18 13:00 09/10/18 14:00 09/10/18 15:00 Temperature 98.2 F Pulse Rate 106 H 108 H 97 H Respiratory Rate 18 Blood Pressure 109/68 Pulse Oximetry 96 09/10/18 16:00 09/10/18 17:00 09/10/18 18:00 Temperature Pulse Rate 90 64 72 Respiratory Rate Blood Pressure Pulse Oximetry 09/10/18 19:00 09/10/18 20:00 09/10/18 21:00 Temperature 98.6 F Pulse Rate 59 L 57 L 59 L Respiratory Rate 16 Blood Pressure 107/74 Pulse Oximetry 100 09/10/18 22:00 09/10/18 23:00 09/11/18 00:00 Temperature 98.4 F Pulse Rate 62 60 56 L Respiratory Rate 16 Blood Pressure 105/61 Pulse Oximetry 100 09/11/18 01:00 09/11/18 02:00 09/11/18 03:00 Temperature 98.2 F Pulse Rate 58 L 56 L 57 L Respiratory Rate 14 Blood Pressure 118/62 Pulse Oximetry 100 09/11/18 04:00 09/11/18 05:00 09/11/18 06:00 Temperature Pulse Rate 88 66 67 Respiratory Rate Blood Pressure Pulse Oximetry 09/11/18 07:00 09/11/18 08:00 09/11/18 09:00 Temperature 98.1 F Pulse Rate 63 92 H 66 Respiratory Rate 18 Blood Pressure 111/69 Pulse Oximetry 100 100 09/11/18 10:10 09/11/18 10:25 09/11/18 10:46 Temperature 97.7 F Pulse Rate 92 H 79 71 Respiratory Rate 16 16 16 Blood Pressure 106/62 103/67 92/57 L Pulse Oximetry 99 97 97 09/11/18 11:30 Temperature 97.3 F L Pulse Rate 56 L Respiratory Rate 16 Blood Pressure 119/68 Pulse Oximetry 100 Intake & Output 09/10/18 09/11/18 09/11/18 18:59 06:59 18:59 Intake Total 840 / 840 2970 / 2970 Output Total 325 / 325 2150 / 2150 Balance 515 / 515 820 / 820 Weight 50.9 kg Intake: IV 1050 / 1050 Calcium Gluconate Inj 10 GM In 1050 / 1050 D5W Inj 950 ML @ 50 mls/hr IV. SIG ONCE ONE Rx#:[id number] Oral 840 / 840 1920 / 1920 Output: Urine 325 / 325 2150 / 2150 Other: # Voids 2 Date of Last Bowel Movement 09/11/18 09/11/18 # Bowel Movements 1 Narrative: GENERAL: mal-nourished, well-developed patient. SKIN: Warm and dry. HEAD: Normocephalic. EYES: No scleral icterus. No injection or drainage. NECK: Supple, trachea midline. No JVD or lymphadenopathy. CARDIOVASCULAR: Regular rate and rhythm without murmurs, gallops, or rubs. RESPIRATORY: Breath sounds equal bilaterally. No accessory muscle use. GASTROINTESTINAL: Abdomen postbiopsy site tender. EXTREMITIES: As above NEUROLOGICAL: Awake, alert, and oriented x 3. Non-focal. - Urinary Catheter Management Indwelling Urethral Catheter Cath placed during this visit: yes, but has since been removed by the nurse Reason for continuing: Other continuation reason Insertion date: 09/07/18 Insertion time: 13:00 Removal date: 09/08/18 Removal time: 13:39 Assessment and Plan - Assessment (1) Hypocalcemia Code(s): E83.51 - Hypocalcemia Status: Acute Plan: Etiology likely malignancy left renal mass on CT scan Post biopsy Await results Calcium 7.8 on replacement, no urine losses detected Renal function normal will follow as needed He needs to follow with urology and oncology (2) Acute hyponatremia Code(s): E87.1 - Hypo-osmolality and hyponatremia Status: Acute Plan: Resolved due to dehydration (3) Acute hypokalemia Code(s): E87.6 - Hypokalemia Status: Acute Plan: Improved after replacement - Plan Multiple electrolyte imbalance due to poor nutrition/low albumin need to replace Give him Ensure Continue to monitor for improvement
[2018-09-11 13:31] LABS: Eos # (Auto) 0.4 th/mm3 (0.0-0.4); Eos % (Auto) 8.6 % (0.0-4.0); Hematocrit 30.2 % (39.0-51.0); Hemoglobin 9.5 gm/dL (13.0-17.0); Lymph # (Auto) 0.8 th/mm3 (1.0-4.8); Lymph % (Auto) 16.2 % (9.0-44.0); Mean Corpuscular HGB Conc 31.6 % (32.0-36.0); Mean Corpuscular Hemoglobin 26.3 pg (27.0-34.0); Mean Platelet Volume 7.6 fL (7.0-11.0); Mono # (Auto) 0.4 th/mm3 (0.0-0.9); Mono % (Auto) 8.9 % (0.0-8.0); Neut # (Auto) 3.1 th/mm3 (1.8-7.7); Neut % (Auto) 65.3 % (16.0-70.0); Platelet Count 202 th/mm3 (150-450); Red Blood Count 3.64 mil/mm3 (4.50-5.90); Red Cell Distribution Width 17.4 % (11.6-17.2); White Blood Count 4.7 th/mm3 (4.0-11.0)
[2018-09-11] MEDS: Calcitriol 0.25 MCG Capsule PO SCH (13:49)
--- NOTE | 2018-09-11 15:21 | CT ---
EXAM DATE: 09/11/2018 10:28 AM EST AGE/SEX: 63 years / Male INDICATIONS: Left renal mass. CLINICAL DATA: This is the patient's initial encounter. Patient reports that signs and symptoms have been present for 1 day and indicates a pain score of 0/10. MEDICAL/SURGICAL HISTORY: . left renal mass None. COMPARISON: [facility] [place], CT ABDOMEN & PELVIS W/O CONTRAST, 09/07/2018. . BIOPSY SITE: Left renal MEDICATION(S): 2.5mg midazolam (Versed) IV 125mcg fentanyl (Sublimaze) IV DEVICE(S): 18 gauge Core biopsy needle Three core specimen(s) sent to the laboratory for pathologic evaluation. . . PROCEDURE: CT guided Left renal biopsy Conscious sedation with continuous EKG and oximetry monitoring. Prior to the procedure informed consent was obtained. Any appropriate prior imaging studies were rev iewed. Using automated exposure control and adjustment of the mA and/or kV according to patient size, radiat ion dose was kept as low as reasonably achievable to obtain optimal diagnostic quality images. DICOM format image data is available electronically for review and comparison. The site was prepped in a sterile fashion. Full sterile technique was used, including cap, mask, leila rile gloves and gown and a large sterile sheet. Hand hygiene and 2% chlorhexidine and/or betadine/al cohol prep was utilized per protocol for cutaneous antisepsis. The skin and subcutaneous tissues wer e infiltrated with local anesthetic solution. With CT guidance the previously identified target was localized. Biopsy was performed using the presc ribed needle as above. Adequate hemostasis was obtained with compression at the puncture site. Follow-up CT scan reveals no hemorrhage. The patient tolerated the procedure well and there were no complications. The patient was returned to the Radiology Outpatient Unit in stable condition. FINDINGS: An oblique approach was taken to the left renal mass and 3 passes were made. Gelfoam was placed throu gh the coaxial needle after biopsy. CONCLUSION: 1. Uncomplicated CT guided biopsy. Electronically signed by: Mendez Driver MD 09/11/2018 3:19 PM EST
[2018-09-12] MEDS: Insulin NovoLIN Regular Correctional Sugar Inj SQ SCH ×6 (02:01→20:44)
[2018-09-12 07:21] LABS: Anion Gap 8 meq/L (5-15); Blood Urea Nitrogen 3 mg/dL (7-18); Carbon Dioxide 26.3 meq/L (21.0-32.0); Chloride 99 meq/L (98-107); Glomerular Filtration Rate Greater Than 89 mL/min (>89); Glucose,Random 76 mg/dL (74-106); Potassium 4.5 meq/L (3.5-5.1); Sodium 133 meq/L (136-145)
[2018-09-12 07:41] LABS: Albumin 2.7 g/dL (3.4-5.0)
[2018-09-12 07:50] LABS: Calcium 6.4 mg/dL (8.5-10.1); Calcium-Albumin Corrected 7.4 mg/dL (8.5-10.1)
[2018-09-12] MEDS: Calcitriol 0.25 MCG Capsule PO SCH (09:02)
--- NOTE | 2018-09-12 13:41 | P.PN ---
Subjective Interval history: awake and alert no pain, denies any tingling or numbness Physical Exam Vital signs: Vital Signs 09/11/18 14:00 09/11/18 15:00 09/11/18 16:00 Temperature 97.7 F Pulse Rate 64 78 70 Respiratory Rate 16 Blood Pressure 111/78 Pulse Oximetry 100 09/11/18 17:00 09/11/18 18:00 09/11/18 19:00 Temperature 98.5 F Pulse Rate 64 100 H 92 H Respiratory Rate 16 Blood Pressure 111/76 Pulse Oximetry 100 09/11/18 20:00 09/11/18 21:00 09/11/18 22:00 Temperature Pulse Rate 102 H 98 H 100 H Respiratory Rate Blood Pressure Pulse Oximetry 09/11/18 23:00 09/12/18 00:00 09/12/18 01:00 Temperature 98.2 F Pulse Rate 84 106 H 104 H Respiratory Rate 18 Blood Pressure 115/88 Pulse Oximetry 100 09/12/18 02:00 09/12/18 03:00 09/12/18 04:00 Temperature 99.9 F H Pulse Rate 115 H 106 H 109 H Respiratory Rate 20 Blood Pressure 107/75 Pulse Oximetry 98 09/12/18 05:00 09/12/18 06:00 09/12/18 07:00 Temperature 98.7 F Pulse Rate 100 H 88 103 H Respiratory Rate 16 Blood Pressure 92/71 L Pulse Oximetry 98 09/12/18 08:00 09/12/18 09:00 09/12/18 10:00 Temperature Pulse Rate 112 H 112 H 102 H Respiratory Rate Blood Pressure Pulse Oximetry 98 Intake & Output 09/11/18 09/12/18 09/12/18 18:59 06:59 18:59 Intake Total 680 / 680 120 / 120 Output Total 340 / 340 775 / 775 Balance 340 / 340 -655 / -655 Weight 49.5 kg Intake: Oral 680 / 680 120 / 120 Output: Urine 340 / 340 775 / 775 Other: Date of Last Bowel Movement 09/11/18 09/11/18 Narrative: awake and alert , speech soft but clear Regular rate and rhythm No lower extremity edema Clear lungs bilaterally, no rales no wheezes abdomen soft, no CVA tenderness - Urinary Catheter Management Indwelling Urethral Catheter Cath placed during this visit: yes, but has since been removed by the nurse Reason for continuing: Other continuation reason Insertion date: 09/07/18 Insertion time: 13:00 Removal date: 09/08/18 Removal time: 13:39 Results - Labs CBC & Chem 7: 09/11/18 12:57 09/16/18 06:31 Laboratory Results - last 24 hr 09/09/18 09/11/18 09/11/18 10:35 17:07 20:04 Sodium Potassium Chloride Carbon Dioxide Anion Gap BUN Creatinine Estimated GFR POC Glucose 84 184 H Random Glucose Calcium Calcium Adj for Albumin Ionized Calcium 3.2 L* Magnesium Albumin 09/12/18 09/12/18 09/12/18 04:39 05:38 05:38 Sodium 133 L Potassium 4.5 Chloride 99 Carbon Dioxide 26.3 Anion Gap 8 BUN 3 L Creatinine 1.01 Estimated GFR Greater than 89 POC Glucose 84 Random Glucose 76 Calcium 6.4 L* D Cancelled Calcium Adj for Albumin 7.4 L* Cancelled Ionized Calcium Magnesium Albumin 2.7 L Cancelled 09/12/18 09/12/18 09/12/18 05:38 07:48 11:30 Sodium Potassium Chloride Carbon Dioxide Anion Gap BUN Creatinine Estimated GFR POC Glucose 74 93 Random Glucose Calcium Calcium Adj for Albumin Ionized Calcium Magnesium 1.3 L Albumin - Imaging Impressions Renal Biopsy CT 09/11/18 00:00 CONCLUSION: 1. Uncomplicated CT guided biopsy. - Procedures left renal biopsy done 09/11 Assessment and Plan - Plan 63-year-old black male being admitted for symptomatic hypercalcemia Persistent hypocalcemia- likely chronic- asymptomatic Low Vitamin D S/P Calcium 10 amps in 1L NS drip completed 09/11 am - Increase calcium to qid - continue high protein intake, vitamin D supplementation Does not seem to be losing any calcium in his urine -Nephrology following Keep on telemetry -trend bmp- Calcium today drop again -started Calcitriol 0.25 mcg po daily 09/10 x 7 days - Mg low- will replace- contributing factor- will replace - phosphorous normal - give x 1 am Calcium gluconate IV Hypomagnesemia - give 2 gm IV magnesium - ff electrolytes - hopefully this would help improve hypocalcemia Secondary hyperparathyroidism -Secondary to hypocalcemia, tx above Possible renal cell carcinoma S/P left renal biopsy 09/11 ff pathology-pending Severe protein calorie malnutrition - dietitian ff/consulted- poor po - patient vehemently refused any form of milk- of any supplements like ensure- "I wont" PT daily- out of chair tid- ambulating DC if Calcium improve with OP ff up
[2018-09-12] MEDS: Mag Sulf 1 gm/100 ml Premix 100 ML IV.SIG SCH ×2 (14:16→15:28)
--- NOTE | 2018-09-12 15:52 | P.DIET ---
Nutritional Evaluation Type of nutrition evaluation: initial Nutrition screening: Weight Loss > 10 lbs, MDC (Consult for diet education) Subjective Barriers to Nutrition: Other (Food insecurity ) Objective - Diagnosis Hypocalcemia, hyponatremia - Objective Body Mass Index: 15.7 Dawn body weight: 75 kg % IBW: 65 Body Weight Used for Calculations: Actual Energy Needs - Lower Range (kCal/kg): 35 Energy Needs - Upper Range (kCal/kg): 40 Lower Limit kCal/kg (kCals): 1,732 Upper Limit kCal/kg (kCals): 1,980 Lower Limit Protein Factor (Grams per Kg): 1.5 Upper Limit Protein Factor (Grams per Kg): 2 Lower Protein Needs (Protein): 74 Upper Protein Needs (Protein): 99 Fluid Factor (ml/kg): 30 Estimated Fluid Needs (ml): 1,732 Dietitian Reviewed in Medical Record: Current diet, Curent medications, Labs, Medical history Diet Order: Regular Objective Comments: Pt with dx of hypocalcemia and hyponatremia with denial of any past medical history. Current lab values show decreased calcium and decreased calcium adjusted for albumin but are beginning to slightly trend upward. Pt currently receiving calcitrol, calcium carbonate, and Vitamin D supplement to replete levels. Pt also having workup done for renal mass. Currently receiving sodium chloride for hyponatremia dx, further lab values suggest normal kidney function Assessment Assessment: Pt is at nutritional risk with dx of hypocalemia and hyponatremia. Received MD consult for diet education regarding low calcium and possible lactose intolerance. After speaking with pt it was determined that there is a lack of food security and it is unlikely that he is going to meet his calcium requirements through diet. The pt says he is lactose intolerant and "sees dreams " and experiences upset stomach and diarrhea whenever he eats or drinks anything containing lactose. Pt described seeing dreams several times suggesting a psychological issue. Pt has been offered Ensure supplement as there is no lactose but he says he needs to " stay away from it." I educated pt on sources of non dairy calcium but he also explained that he cannot eat those either because they do not agree with him. Per MD note pt with severe protein calorie malnutrition which I am agreeable to. I will recommend another lactose free nutritional supplement however unsure if pt will be agreeable to try it. At this time recommended to continue to use calcium and Vit D supplementation. Recommendations: 1. Continue with calcium and vitamin D supplementation 2. Glucerna shake TID 3. Continue to monitor lab values Dietitian to Monitor: Lab values, Supplement acceptance, Diet tolerance, PO Intake
[2018-09-12 19:51] LABS: Vitamin D 1,25-Dihydroxy 15 pg/mL (18-72)
[2018-09-12] MEDS ORDERED: Calcium Gluconate Inj 1 GM in Dextrose 5% in Water Inj 100 ML IV.SIG ONE ×2 (20:00)
[2018-09-13] MEDS: Insulin NovoLIN Regular Correctional Sugar Inj SQ SCH ×2 (01:09→06:00)
[2018-09-13 08:22] LABS: Albumin 2.7 g/dL (3.4-5.0); Calcium 6.6 mg/dL (8.5-10.1); Carbon Dioxide 27.2 meq/L (21.0-32.0); Magnesium 1.7 mg/dL (1.5-2.5); Potassium 4.5 meq/L (3.5-5.1); Total Protein 6.7 g/dL (6.4-8.2)
--- NOTE | 2018-09-13 10:27 | P.PNIM ---
Subjective Interval history: Follow-up hypocalcemia Calcium still low, also hypotensive at 96/71, mildly tachycardic, afebrile. No dizziness or lightheadedness. No chest pain or shortness of breath. On room air. No other complaints. Physical Exam Vital signs: Last Vital Signs Temp 98.1 F 09/13/18 03:00 Pulse 100 H 09/13/18 06:00 Resp 16 09/13/18 03:00 BP 96/71 L 09/13/18 03:00 Pulse Ox 100 09/13/18 03:00 Intake & Output 09/11/18 09/12/18 09/13/18 09/14/18 06:59 06:59 06:59 06:59 Intake Total 3810 / 3810 800 / 800 670 / 670 Output Total 2475 / 2475 1115 / 1115 1025 / 1025 Balance 1335 / 1335 -315 / -315 -355 / -355 Weight 50.9 kg 49.5 kg Narrative: awake and alert , speech soft but clear Regular rate and rhythm No lower extremity edema Clear lungs bilaterally, no rales no wheezes abdomen soft, no CVA tenderness Alert awake and oriented x3, no focal deficits. Urinary Catheter Management Indwelling Urethral Catheter: Cath placed during this visit: yes, but has since been removed by the nurse Insertion date: 09/07/18 Insertion time: 13:00 Removal date: 09/08/18 Removal time: 13:39 Results Labs CBC & Chem 7: 09/11/18 12:57 09/13/18 06:48 Procedures Procedures: left renal biopsy done 09/11 Assessment and Plan (1) Hypocalcemia: Code(s): E83.51 - Hypocalcemia Status: Acute (2) Hypomagnesemia: Code(s): E83.42 - Hypomagnesemia Status: Acute Plan 63-year-old black male being admitted for symptomatic hypercalcemia Persistent hypocalcemia with hypovitaminosis D- likely chronic, patient was found to have hypovitaminosis D. Status post calcium IV, on calcium p.o. and vitamin D p.o. Nephrology consulted, no significant calciuria. Check BMP daily , calcitriol 0.25 mcg daily for 7 days, 09/10-09/17. Continue calcium supplementation, Glucerna 3 times daily. Calcium 6.6 today, recheck tomorrow. We will give high-dose of vitamin D2 50,000 units every 7 days. Hypotension-start normal saline. Hypomagnesemia-replace, monitor daily. Phosphorus is normal. Secondary hyperparathyroidism -Secondary to hypocalcemia, tx above Renal mass-CT scan of the abdomen showed left renal mass, possible renal cell carcinoma S/P left renal biopsy 09/11, follow-up biopsy. For further treatment , follow-up with urology and oncology as outpatient, will need mandatory consultation to oncology if biopsy is positive. Acute hyponatremia-resolved, due to dehydration, continue IVF with normal saline Acute hypokalemia-replace. Resolved. Severe protein calorie malnutrition - dietitian ff/consulted:, Glucerna 3 times daily, continue vitamin D and calcium supplementation. DVT prophylaxis: Ambulation, SCDs. Discharge with home health care physical therapy with wheeled walker. Progress Note: Quality VTE Deep Vein Thrombosis/Pulmonary Embolism Present on Admission: No
--- NOTE | 2018-09-13 10:28 | P.DCO ---
Diagnosis (1) Hypocalcemia: Status: Acute (2) Hypomagnesemia: Status: Acute Physical Therapy Order: Evaluate and treat Case Management Consult Case Management Consult-Home Health: Yes I have seen patient Farooq Garcia on 09/13/18. My clinical findings support the need for the requested home health care services because: Limited mobility due to disease progression, Limited ability to care for self and High risk of falls I certify that my clinical findings support that this patient is homebound because: Post-op weakness and Unsteady gait/balance
[2018-09-13] MEDS: Calcitriol 0.25 MCG Capsule PO SCH (11:27)
[2018-09-13] MEDS: Sod Chloride 0.9% Inj 1,000 ML IV.CONT SCH ×2 (11:33→21:24)
[2018-09-14 08:39] LABS: Calcium 5.9 mg/dL (8.5-10.1); Carbon Dioxide 25.7 meq/L (21.0-32.0); Magnesium 1.5 mg/dL (1.5-2.5); Potassium 4.5 meq/L (3.5-5.1)
[2018-09-14 08:47] LABS: Albumin 2.5 g/dL (3.4-5.0)
[2018-09-14 08:50] LABS: Calcium-Albumin Corrected 7.1 mg/dL (8.5-10.1)
[2018-09-14] MEDS: Sod Chloride 0.9% Inj 1,000 ML IV.CONT SCH (09:06)
[2018-09-14] MEDS: Calcitriol 0.25 MCG Capsule PO SCH (09:07)
[2018-09-14] MEDS ORDERED: Calcium Chloride Inj 1 GM/10 ML Syringe IV.PUSH ONE (09:45)
[2018-09-14] MEDS ORDERED: Calcium Chloride Inj 1 GM in Sodium Chlor 0.9% Inj 100 ML IV.SIG ONE (12:00)
--- NOTE | 2018-09-14 13:42 | P.PNIM ---
Subjective Interval history: Follow-up for hypocalcemia Calcium is still low at 7.1, no nausea or vomiting. No tremors, no pain. Not short of breath. Physical Exam Vital signs: Last Vital Signs Temp 98.2 F 09/14/18 12:13 Pulse 90 09/14/18 12:13 Resp 16 09/14/18 12:13 BP 102/68 09/14/18 12:13 Pulse Ox 100 09/14/18 12:13 Intake & Output 09/12/18 09/13/18 09/14/18 09/15/18 06:59 06:59 06:59 06:59 Intake Total 800 / 800 670 / 670 2980 / 2980 1000 / 1000 Output Total 1115 / 1115 1025 / 1025 1225 / 1225 Balance -315 / -315 -355 / -355 1755 / 1755 1000 / 1000 Weight 49.5 kg 49.9 kg Narrative: awake and alert , speech soft but clear Regular rate and rhythm No lower extremity edema Clear lungs bilaterally, no rales no wheezes abdomen soft, no CVA tenderness Alert awake and oriented x3, no focal deficits. Urinary Catheter Management Indwelling Urethral Catheter: Cath placed during this visit: yes, but has since been removed by the nurse Insertion date: 09/07/18 Insertion time: 13:00 Removal date: 09/08/18 Removal time: 13:39 Results Labs CBC & Chem 7: 09/11/18 12:57 09/14/18 06:13 Procedures Procedures: left renal biopsy done 09/11 Assessment and Plan (1) Hypocalcemia: Code(s): E83.51 - Hypocalcemia Status: Acute (2) Hypomagnesemia: Code(s): E83.42 - Hypomagnesemia Status: Acute Plan 63-year-old black male being admitted for symptomatic hypercalcemia Persistent hypocalcemia with hypovitaminosis D- likely chronic, patient was found to have hypovitaminosis D. Status post calcium IV, on calcium p.o. and vitamin D p.o. Nephrology consulted, no significant calciuria. Check BMP daily , calcitriol 0.25 mcg daily for 7 days, 09/10-09/17. Continue calcium supplementation, Glucerna 3 times daily. Calcium 7.1 today, recheck tomorrow. Cont high-dose of vitamin D2 50,000 units every 7 days. Hypotension- BP better, cont normal saline. Hypomagnesemia-replace 1 g today, monitor daily. Phosphorus is normal. 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 For further treatment, follow-up with urology, consult oncology. Acute hyponatremia-resolved, due to dehydration, continue IVF with normal saline improving Acute hypokalemia-replace. Resolved. Severe protein calorie malnutrition - dietitian ff/consulted:, Glucerna 3 times daily, continue vitamin D and calcium supplementation. DVT prophylaxis: Ambulation, SCDs. Discharge with home health care physical therapy with wheeled walker. Progress Note: Quality VTE Deep Vein Thrombosis/Pulmonary Embolism Present on Admission: No
[2018-09-14] MEDS ORDERED: Mag Sulf 1 gm/100 ml Premix 100 ML IV.SIG ONE (14:00)
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
[2018-09-15 08:03] LABS: Anion Gap 8 meq/L (5-15); Blood Urea Nitrogen 3 mg/dL (7-18); Calcium 6.7 mg/dL (8.5-10.1); Carbon Dioxide 24.3 meq/L (21.0-32.0); Chloride 103 meq/L (98-107); Glomerular Filtration Rate Greater Than 89 mL/min (>89); Glucose,Random 66 mg/dL (74-106); Magnesium 1.4 mg/dL (1.5-2.5); Potassium 4.6 meq/L (3.5-5.1); Sodium 135 meq/L (136-145)
[2018-09-15 08:15] LABS: Albumin 2.7 g/dL (3.4-5.0); Calcium-Albumin Corrected 7.7 mg/dL (8.5-10.1)
[2018-09-15] MEDS: Sod Chloride 0.9% Inj 1,000 ML IV.CONT SCH ×2 (09:04→09:42)
--- NOTE | 2018-09-15 09:32 | P.PNONC ---
Subjective Interval history: Afebrile Patient reports he is not planning to have any surgery for his renal cancer as "this must be the way God wants it to be" He also tells me that the reason he had the original weakness is because he ate bad grits the night before No acute complaints this morning Objective Vital Signs/Intake & Output: Vital Signs 09/14/18 12:00 09/14/18 12:13 09/14/18 16:00 Temperature 98.2 F Pulse Rate 87 90 61 Respiratory Rate 16 Blood Pressure 102/68 Pulse Oximetry 100 09/14/18 16:13 09/14/18 19:00 09/14/18 20:00 Temperature 98.4 F 98.4 F Pulse Rate 74 74 74 Respiratory Rate 16 16 Blood Pressure 106/67 107/74 Pulse Oximetry 100 100 09/14/18 23:00 09/14/18 23:54 09/15/18 03:00 Temperature 99.1 F 99.3 F Pulse Rate 79 89 84 Respiratory Rate 16 16 Blood Pressure 117/68 93/64 L Pulse Oximetry 100 99 09/15/18 04:00 09/15/18 07:37 Temperature 99 F Pulse Rate 72 86 Respiratory Rate 16 Blood Pressure 101/63 Pulse Oximetry 98 Intake & Output 09/14/18 09/15/18 09/15/18 18:59 06:59 18:59 Intake Total 1000 / 1000 150 / 150 210 / 210 Output Total 750 / 750 525 / 525 Balance 250 / 250 -375 / -375 210 / 210 Weight 110 lb 0.171 oz Intake: IV 1000 / 1000 210 / 210 NS Inj 1,000 ML @ 100 mls/hr IV 1000 / 1000 .CONT .Q10H [facility] Rx#:[id number] Oral 150 / 150 Output: Urine 750 / 750 525 / 525 Other: Date of Last Bowel Movement 09/14/18 Result Diagrams: 09/11/18 12:57 09/15/18 05:10 Laboratory Results: Laboratory Results - last 24 hr 09/15/18 05:10 Sodium 135 L Potassium 4.6 Chloride 103 Carbon Dioxide 24.3 Anion Gap 8 BUN 3 L Creatinine 0.96 Estimated GFR Greater than 89 Random Glucose 66 L Calcium 6.7 L* D Calcium Adj for Albumin 7.7 L Magnesium 1.4 L Albumin 2.7 L Medications: Active Medications Generic Name Dose Route Start Last Admin Trade Name Freq PRN Reason Stop Dose Admin Calcitriol 0.25 mcg 09/10/18 09:00 09/14/18 09:07 Rocaltrol PO 09/17/18 08:59 0.25 mcg DAILY ANIL Administration Calcium Carbonate 1,000 mg 09/12/18 18:00 09/14/18 20:10 Tums Chew CHEW 1,000 mg QID ANIL Administration Ergocalciferol 50,000 unit 09/13/18 11:00 09/13/18 13:05 Vitamin D2 PO 50,000 unit Q7D ANIL Administration Sodium Chloride 1,000 mls @ 125 mls/hr 09/13/18 10:44 09/15/18 09:04 Ns Inj IV.CONT Not Given .Q8H ANIL Sodium Chloride 2 ml 09/06/18 21:00 09/14/18 20:11 Ns Flush IV.FLUSH Not Given BID ANIL Sodium Chloride 2 ml 09/06/18 13:12 09/08/18 08:01 Ns Flush IV.FLUSH 2 ml PRN PRN Administration FLUSH AFTER USING IV ACCESS Objective Remarks: GENERAL: Thin older male sitting up in bed eating breakfast in no acute distress SKIN: Warm and dry. HEAD: Normocephalic. EYES: No scleral icterus. No injection or drainage. NECK: Supple, trachea midline. No JVD or lymphadenopathy. CARDIOVASCULAR: Regular rate and rhythm without murmurs. RESPIRATORY: Breath sounds equal bilaterally. No accessory muscle use. GASTROINTESTINAL: Abdomen soft, non-tender, nondistended. EXTREMITIES: No cyanosis, or edema. MUSCULOSKELETAL: Adequate muscle tone. NEUROLOGICAL: No obvious focal deficit. Awake, alert, and oriented x3. Assessment/Plan - Plan 63-year-old male with new diagnosis of renal cell carcinoma admitted with weakness 1. Patient's calcium level is improved; continue to monitor BMP. 2. Per RN a psych consult was placed on the patient and they have not yet seen him. Nursing staff will call to inquire about this consult. 3. The patient will need to follow-up with urology to have another discussion about resection as he does not appear to have any distant metastatic disease. 4. I am not sure that he will consent to the surgery per our conversation this morning however he needs psych consult to see if he is deemed appropriate to make his own decisions. - Attending Statement The exam, history, and the medical decision-making described in the above note were completed with the assistance of the mid-level provider. I reviewed and agree with the findings presented. I attest that I had a [id number] encounter with the patient on the same day, and personally performed and documented my assessment and findings in the medical record. Patient seen and examined I discussed with him again regarding the surgical option to remove kidney cancer Patient adamantly denies for surgery for surgery He stated that "God will take care of that" Please reconsult urology to talk to the patient about surgery Nothing more I can do for him Psych and palliative consult have been requested Please let me know if you have any further questions
[2018-09-15] MEDS: Calcitriol 0.25 MCG Capsule PO SCH (09:42)
[2018-09-15] MEDS ORDERED: Calcium Chloride Inj 1 GM/10 ML Syringe IV.PUSH ONE (11:43)
--- NOTE | 2018-09-15 11:44 | P.PNIM ---
Subjective Interval history: Follow-up hypocalcemia Patient has no complaints, denies any chest pain or shortness of breath. Discussed about his condition, that he would benefit from surgery given that there is no metastatic disease, patient does not want to get surgery. I told him he might if he does not get surgery, and he is okay with that. He denies depression. Physical Exam Vital signs: Last Vital Signs Temp 99 F 09/15/18 07:37 Pulse 86 09/15/18 07:37 Resp 16 09/15/18 07:37 BP 101/63 09/15/18 07:37 Pulse Ox 98 09/15/18 07:37 Intake & Output 09/13/18 09/14/18 09/15/18 09/16/18 06:59 06:59 06:59 06:59 Intake Total 670 / 670 2980 / 2980 1150 / 1150 710 / 710 Output Total 1025 / 1025 1225 / 1225 1275 / 1275 125 / 125 Balance -355 / -355 1755 / 1755 -125 / -125 585 / 585 Weight 49.9 kg 49.9 kg Narrative: awake and alert , speech soft but clear Regular rate and rhythm No lower extremity edema Clear lungs bilaterally, no rales no wheezes abdomen soft, no CVA tenderness Alert awake and oriented x3, no focal deficits. Urinary Catheter Management Indwelling Urethral Catheter: Cath placed during this visit: yes, but has since been removed by the nurse Insertion date: 09/07/18 Insertion time: 13:00 Removal date: 09/08/18 Removal time: 13:39 Results Labs CBC & Chem 7: 09/11/18 12:57 09/15/18 05:10 Procedures Procedures: left renal biopsy done 09/11 Assessment and Plan (1) Hypocalcemia: Code(s): E83.51 - Hypocalcemia Status: Acute (2) Hypomagnesemia: Code(s): E83.42 - Hypomagnesemia Status: Acute Plan 63-year-old black male being admitted for symptomatic hypercalcemia, patient was found to have hypovitaminosis D. Has been receiving calcium orally and intravenously, vitamin D. Nephrology was consulted. Patient was also found to have a left renal mass on CT scan of the abdomen, status post left renal biopsy 09/11/2018, showed renal cell carcinoma. Oncology consulted, recommend surgical resection since no evidence of metastatic disease. Persistent hypocalcemia with hypovitaminosis D- Status post calcium IV, on calcium p.o. and vitamin D p.o. Nephrology consulted, no significant calciuria. Check BMP daily, calcitriol 0.25 mcg daily for 7 days, 09/10-09/17. Cont high-dose of vitamin D2 50,000 units every 7 days. We will give another calcium chloride today. 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 Oncology consulted, no evidence of metastatic disease, recommendation is surgical resection care of urology. Patient however refusing surgery. Discussed about his condition, that he would benefit from surgery given that there is no metastatic disease, patient does not want to get surgery. He is aware that he can if he does not get surgery since the cancer will progress. He says that he is okay with that and understands that he can . He denies depression. Consult palliative care, consult psychiatry for capacity. I think he has capacity though sometimes he is distant and has bizarre thoughts. Hypotension- BP better, stop normal saline. Hypomagnesemia-replace 1 g again today, monitor daily. Phosphorus is normal. Secondary hyperparathyroidism -Secondary to hypocalcemia, tx above Acute hyponatremia-resolved, d/c IVF, recheck BMP Acute hypokalemia-replace. Resolved. Severe protein calorie malnutrition - dietitian ff/consulted:, Glucerna 3 times daily, continue vitamin D and calcium supplementation. DVT prophylaxis: Ambulation, SCDs. Discharge with home health care physical therapy with wheeled walker. Progress Note: Quality VTE Deep Vein Thrombosis/Pulmonary Embolism Present on Admission: No
[2018-09-15] MEDS ORDERED: Mag Sulf 1 gm/100 ml Premix 100 ML IV.SIG ONE (12:00)
[2018-09-15] MEDS ORDERED: Calcium Chloride Inj 1 GM in Sodium Chlor 0.9% Inj 100 ML IV.SIG ONE (13:00)
[2018-09-16 08:00] LABS: Anion Gap 7 meq/L (5-15); Blood Urea Nitrogen 2 mg/dL (7-18); Calcium 6.8 mg/dL (8.5-10.1); Carbon Dioxide 22.9 meq/L (21.0-32.0); Chloride 105 meq/L (98-107); Glomerular Filtration Rate Greater Than 89 mL/min (>89); Glucose,Random 71 mg/dL (74-106); Magnesium 1.5 mg/dL (1.5-2.5); Potassium 4.7 meq/L (3.5-5.1); Sodium 135 meq/L (136-145)
[2018-09-16 08:11] LABS: Albumin 2.4 g/dL (3.4-5.0); Calcium-Albumin Corrected 8.1 mg/dL (8.5-10.1)
[2018-09-16] MEDS: Calcitriol 0.25 MCG Capsule PO SCH (08:37)
--- NOTE | 2018-09-16 10:59 | P.CONPAL ---
Consult Service: Palliative Care Requesting Physician: Nat Agarwal Reason for Consult: a. To assist with evaluation and management of symptoms including:generalized weakness, physical deconditioning b. To assist medical decision maker(s) with: better understanding of current medical conditions; weighing benefits/burdens of medical treatment options; making medical treatment decisions. Primary Care Provider: UNKNOWN History of Present Illness History of Present Illness: Mr. Garcia is a 63-year-old with no prior medical history. He reports that he does not see a primary care physician. He was brought to the emergency room on 09/06/18 with complaints of generalized malaise and weakness. Patient was riding his bicycle to the grocery store and he suddenly felt weak all over and his legs were giving away. He also developed shortness of breath and fatigue. Patient also reported in the emergency room that symptoms started approximately 4 months ago and have progressively worsened. ER course: * Vital signs: Temperature 98.4F, pulse 85, respirations 18, BP 118/69, O2 saturation 100% * Laboratory workup revealed WBC 3.4, hemoglobin 9.8, hematocrit 30.8, platelet count 219, PT 11.7, INR 1.2, sodium 129, potassium 3.2, BUN/creatinine 7/1.19, random glucose 80, calcium 5.0, phosphorus 1.6, AST 44, ALT 17, CKMB 1.1, total protein 7.1, albumin 2.9, TSH 1.730, vitamin D 25-hydroxy 15 * Chest x-ray revealed no acute cardiopulmonary abnormality * EKG revealed sinus rhythm with prolonged QT interval. * Patient was started on IV fluids and calcium supplementation. * Patient was admitted for further evaluation and treatment. Critical care physician consulted on 09/06/18 for evaluation and management of a patient with symptomatic hypocalcemia, recommended vitamin D replacement, monitor electrolytes and aggressive mobilization. Chest CT on 09/07/18 revealed left upper quadrant mass believed to arise off the upper pole of the left kidney measuring up to 6.9 cm. A renal cell carcinoma should be excluded. Hepatic cysts. Renal cysts. Abdomen/pelvis CT on 09/07/18 revealed hepatic and renal cysts and exophytic mass arising of the upper pole of the left kidney suspicious for renal cell carcinoma until proven otherwise. Nephrology Dr. Funez consulted on 09/07/18 for evaluation and management of a patient with hypocalcemia. Urology Dr. Levin consulted on 09/08/18 to evaluate and manage a patient with left renal mass, recommended percutaneous biopsy of renal mass by interventional radiology. Physical therapy consulted, recommended home with home health PT. Pathology came back as renal cell carcinoma. On 09/14/[address] Steel consulted for evaluation and management of a patient who recently was diagnosed with renal cell cancer. Oncology recommended surgical resection, feels that patient renal cell cancer is chromophobe type with no evidence of metastatic disease. Since recommendation for surgical resection, patient has declined surgical intervention. Palliative care consulted to assist with symptom management and establishment of goals of medical treatment. Patient seen and examined in his room. Patient is alert, oriented to self, place and situation. Patient appears to have somewhat understanding of his new diagnosis of renal cell cancer though it is difficult to know whether patient has insight regarding this new medical diagnosis. Patient denies pain, or any form of discomfort. Patient states that he has no medical history. He reports that he does not have a primary physician and has not felt a need to go and see a doctor. He went on to mention that he has been having problems with his vision for the past 3 months and he [facility] how he could get help. Obtained psychosocial history and events leading to this hospitalization. Introduced palliative care and its role in symptom management and establishment of goals of medical treatment. Patient has never completed advanced directives. During this initial palliative visit, patient designated his brother Bolivar Mederos as his healthcare surrogate and his sister Simran Blair as his alternate healthcare surrogate. Per patient, both his siblings he designated reside in [place]. Patient was able to explain what the medical team has told him regarding his newly diagnosed renal cell cancer and was able to repeat interventions that had been offered including biopsy and surgical removal of renal mass. Patient states that he relies on his Oriental Orthodox hortensia. He states that, " The body is a sacred alevism and God has allowed the mass to get there, i will either live with it or from it. God is able to take care of the cancer if He wants to. If this is what i will from then that is part of lori work". Patient goes on to state that is part of life and he is not scared of dying. He blames his recent cancer diagnosis to his "carnivorism diet". Throughout conversation patient has been quoting biblical scriptures to support his decision of refusing surgical intervention. Patient states that he is Mormon though he is not a member. He goes to [employer] once in a while. Addressed CODE STATUS, discussed CPR benefits, complications and limitations. Patient states that he believes in natural transition which is dying when it is his time to . Patient elected DO NOT RESUSCITATE. He went on to state that he would wish his remains to be cremated after he dies. Function/Cognitive Trajectory: Patient resides alone. Prior to this hospitalization he was independent of all his ADLs. Patient used to ride his bike more often. Review of Systems Constitutional: Reports fatigue, Reports lack of energy, Reports weakness, Denies fever(s), Denies weight loss Eyes: Denies blurry vision Endocrine: Denies increased urination Hematologic/Lymphatic: Denies easy bruising PMFSH - History History Provided By: Patient, Medical Record - Medical History Medical History: Medical History (Last Reviewed 09/16/18 @ 08:00 by Richard Muir, PT) Patient denies medical problems - Surgical History Surgical History: Surgical History (Last Reviewed 09/16/18 @ 08:00 by Richard Muir, PT) No history of previous surgery - Family History Family History: Family History (Last Reviewed 09/16/18 @ 08:00 by Richard Muir, PT) Other Patient denies significant medical history - Tobacco History Second Hand Smoke Exposure: No Tobacco Use In Past 30 Days: No Smoking Status: Former smoker Tobacco Type: Cigarettes - Alcohol History How Often Do You Have a Drink Containing Alcohol: Never - Substance Use History Substance History: No History of Abuse - Travel History Recent Travel in the [facility] Within the Last 8 Weeks: No Recent Travel Out of the Country Within the Last 8 Weeks: No - Immunization History Tetanus Immunization: >5 Years Medications and Allergies Active Medications: Active Medications Calcitriol (Rocaltrol) 0.25 mcg PO DAILY [facility] Stop: 09/17/18 08:59 Last Admin: 09/16/18 08:37 Dose: 0.25 mcg Calcium Carbonate (Tums Chew) 1,000 mg CHEW QID [facility] Last Admin: 09/16/18 08:37 Dose: 1,000 mg Ergocalciferol (Vitamin D2) 50,000 unit PO Q7D [facility] Last Admin: 1214/18 13:05 Dose: 50,000 unit Sodium Chloride (Ns Flush) 2 ml IV.FLUSH BID [facility] Last Admin: 09/16/18 08:38 Dose: 2 ml Sodium Chloride (Ns Flush) 2 ml IV.FLUSH PRN PRN PRN Reason: FLUSH AFTER USING IV ACCESS Last Admin: 09/08/18 08:01 Dose: 2 ml Allergies Allergy/AdvReac Type Severity Reaction Status Date / Time No Known Allergies Allergy Verified 09/06/18 09:20 Home Medications Medication Instructions Recorded Confirmed Type No Known Home Medications 09/06/18 09/06/18 History Advance Directives Living Will: No Physical Exam Vital Signs: Vital Signs - 24 hr 09/15/18 12:09 09/15/18 15:00 09/15/18 18:00 Temperature 98.4 F 98 F Pulse Rate 60 79 62 Respiratory Rate 16 16 Blood Pressure 107/67 106/73 Pulse Oximetry 100 100 09/15/18 19:00 09/15/18 20:00 09/15/18 23:00 Temperature 98.9 F 98.6 F Pulse Rate 100 H 99 H 74 Respiratory Rate 16 16 Blood Pressure 122/78 107/68 Pulse Oximetry 100 100 09/16/18 00:00 09/16/18 02:47 09/16/18 02:53 Temperature 98.1 F Pulse Rate 73 85 84 Respiratory Rate 16 Blood Pressure 106/70 Pulse Oximetry 100 I&O: Intake & Output 09/14/18 09/15/18 09/16/18 09/17/18 06:59 06:59 06:59 06:59 Intake Total 2980 / 2980 1150 / 1150 820 / 820 Output Total 1225 / 1225 1275 / 1275 2700 / 2700 Balance 1755 / 1755 -125 / -125 -1880 / -1880 Weight 49.9 kg 49.9 kg 49.5 kg Physical Exam: CONSTITUTIONAL/GENERAL: This is an adequately nourished patient, in no apparent distress. TUBES/LINES/DRAINS: SKIN: No jaundice, rashes, or lesions. Ecchymoses on upper extremities. No wounds seen anteriorly. Skin temperature appropriate. Not diaphoretic. HEAD: Atraumatic. Normocephalic. EYES: Pupils equal and round and reactive. Extraocular motions intact. No scleral icterus. No injection or drainage. Fundi not examined. ENT: Hearing grossly normal. Nose without bleeding or purulent drainage. Throat without visible erythema, exudates, masses, or lesions. NECK: Trachea midline. Supple, nontender. No palpable thyroid enlargement or nodularity. CARDIOVASCULAR: Regular rate and rhythm without murmurs, gallops, or rubs. No JVD. Peripheral pulses symmetric. RESPIRATORY/CHEST: Symmetric, unlabored respirations. Clear to auscultation. Breath sounds equal bilaterally. No wheezes, rales, or rhonchi. GASTROINTESTINAL: Abdomen soft, non-tender, nondistended. No hepato-splenomegaly , or palpable masses. No guarding. Bowel sounds present. GENITOURINARY: Without palpable bladder distension. Cordero catheter in place. MUSCULOSKELETAL: Extremities without clubbing, cyanosis, or edema. No joint tenderness or effusion noted. No calf tenderness. No mottling or clubbing. LYMPHATICS: No palpable cervical or supraclavicular adenopathy. NEUROLOGICAL: Awake and alert. Motor and sensory grossly within normal limits. Follows commands. Cognitively sharp. Moves all extremities. PSYCHIATRIC: No obvious anxiety/depression. no apparent hallucinations or other psychotic thought process. Diagnostic Tests Laboratory: Laboratory Results - last 72 hr 09/13/18 09/13/18 09/13/18 13:00 18:09 20:11 Sodium Potassium Chloride Carbon Dioxide Anion Gap BUN Creatinine Estimated GFR POC Glucose 145 H 126 H 86 Random Glucose Calcium Calcium Adj for Albumin Magnesium Albumin 09/13/18 09/14/18 09/14/18 23:40 05:09 06:13 Sodium 134 L Potassium 4.5 Chloride 102 Carbon Dioxide 25.7 Anion Gap 6 BUN 3 L Creatinine 1.16 Estimated GFR 77 L POC Glucose 87 73 Random Glucose 106 Calcium 5.9 L* Calcium Adj for Albumin 7.1 L* Magnesium 1.5 Albumin 2.5 L 09/15/18 09/16/18 05:10 06:31 Sodium 135 L 135 L Potassium 4.6 4.7 Chloride 103 105 Carbon Dioxide 24.3 22.9 Anion Gap 8 7 BUN 3 L 2 L Creatinine 0.96 0.87 Estimated GFR Greater than 89 Greater than 89 POC Glucose Random Glucose 66 L 71 L Calcium 6.7 L* D 6.8 L* Calcium Adj for Albumin 7.7 L 8.1 L Magnesium 1.4 L 1.5 Albumin 2.7 L 2.4 L Result Diagrams: 09/11/18 12:57 09/16/18 06:31 Imaging: Chest X-Ray 09/06/18 09:57 CONCLUSION: No acute cardiopulmonary abnormality is identified. Abdomen/Pelvis CT 09/07/18 00:00 CONCLUSION: 1. Hepatic and renal cysts. 2. There is an exophytic mass arising off the upper pole of the left kidney suspicious for renal cell carcinoma until proven otherwise. Chest CT 09/07/18 00:00 CONCLUSION: 1. Left upper quadrant mass believed to arise off the upper pole of the left kidney measuring up to 6.9 cm. A renal cell carcinoma should be excluded. 2. Hepatic cysts. 3. Left renal cyst. 4. The density on the recent chest x-ray of the right lung base corresponds to left lobe of the liver. Renal Biopsy CT 09/11/18 00:00 CONCLUSION: 1. Uncomplicated CT guided biopsy. Procedures: 09/11/[id number] biopsy of left renal mass Patient/Family Conference Issues Discussed: * Palliative care role, purpose, approach * Additional medical, psychosocial, and spiritual history * Patients general health, functional status, and cognitive changes in the months leading up to the current hospitalization * Patient/family understanding of the current medical problems * Patient/family understanding of prognosis * Patients goals of care as best understood from advance directives and/or conversations and/or values * Current medical treatment options and benefits/burdens of those options * Likely scenarios comparing ongoing aggressive care with a transition to comfort measures only * Questions answered to the best of my ability * Palliative care contact information provided Assessment and Plan - Disease Oriented Problem List (1) Hypomagnesemia (2) Hypocalcemia (3) Acute hyponatremia (4) Acute hypokalemia (5) Renal mass, left - Symptom Scale (2) Physical deconditioning 0-10 Scale: Unable to quantify Pertinent Non-Medical Issues: Psychosocial:Patient was born in [place], [place]. He was pretty much raised in [place] but has lived in 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 Patient states that he has a Masters Degree in Public Administration from [employer] and Masters degree in Oriental Orthodox education from [employer]. Patient has been and is . He has never had children. Patient has 7 siblings, 4 adult sisters Simran Blair, Breonna, Stefanie King and 3 adult brothers Yeison Snyder, Camron King and Patrick Roth. Patient states that his mother Velasquez Swann is still living and he last talked and spoke to his father about 5 years ago and is not sure if he is still alve. Spiritual:Patient is a Oriental Orthodox. States that he is Jehova`s witness Legal:Never completed advance directives in the past. Ethical issues impacting care:None identified at this time. Important Contacts: [id number], [place] Sister-alternate [facility]- Simran Blair Prognosis: Mr. Garcia is a 63-year-old with no prior medical history and does not see a primary care physician. He was brought to the emergency room on 09/06/18 with complaints of generalized malaise and weakness. Diagnostic tests have showed that patient has renal cell cancer, and oncology has recommended surgical intervention. Patient is refusing surgical treatment. Given patient's decision to not proceed with surgical removal of renal mass, patient is at risk for further complications, deterioration and decline. Code Status: No Code DNR Plan: PLAN: Legal decision maker: Patient is alert and oriented to self, place and situation. Patient has been deemed capacitated to make his own medical decisions by psychiatry on 09/16/18. In the event that patient is incapacitated he has designated his brother Gatito Lutz as his healthcare surrogate and his sister Simran Blair as his alternate healthcare surrogate. Goals: Aggressive short of no code. Patient made himself a DNR and signed a healthcare surrogate. DNR entered in EMR after patient was deemed capacitated by psychiatry. Patient understands his medical condition and does not want any surgical intervention. He understands that cancer may metastasize and he understands that he may continue deteriorate and may get worse. CODE STATUS: No code DNR SYMPTOMS: * Generalized weakness: Patient came in with complaints of generalized weakness. The patient recently diagnosed of renal cell carcinoma. Physical therapy has been consulted, recommended home health physical therapy. * Physical deconditioning: Patient reporting that he has been having problems with his vision for the past 3 months and has had generalized weakness, fatigue prior to this hospitalization. Patient has significant muscle wasting. Recently diagnosed with renal cell carcinoma. PT consulted Palliative care will continue to follow the patient during hospital course as condition evolves, to assist patient/decision-maker with understanding of their medical conditions, weighing benefits/burdens of treatment options, for clarification of goals of treatment. Additionally will assist with any symptoms of palliative concern Appreciation Thank you for the opportunity to participate in the care of Farooq Garcia. Attestation Attestation: To help prompt me to consider important information that might be impacting today's encounter and assessment, information from prior notes written by myself or my colleagues may have been "brought forward" into today's note. My signature on this note, however, is an attestation that I personally performed the exam, history, and/or decision-making noted today, and, unless otherwise indicated, the interactions with patient, family, and staff as well as the review of records all occurred today. I also attest that the listed assessment and stated plan reflect my best clinical judgment today based on the combination of historical information, prior notes, and today's exam/ interactions. When time spent is documented, it refers only to time spent today by the signer, or if indicated, combined time spent today by collaborating physician/nurse practitioner.
--- NOTE | 2018-09-16 11:41 | P.PNONC ---
Subjective Interval history: Patient sitting in bed, no acute distress. He is oriented to person, place and year. He has no complaints at this time. Spoke to the patient in regards to the renal cell carcinoma found on biopsy, he states the "biopsy took care of it". I assured him that the biopsy did not take care of it and that we have recommended surgery. He states "I do not do surgery, it is in God's hands then" He tells me that he is Jehovah witness and does not take blood products or have surgery. He tells me he has family and I asked him if he is and he states "I hope to get some day, he does not think he has a fianc and he has "plenty of girlfriends." I asked him if he has children and he states "not any that I am aware of" He proceeds to tell me that if he eats a lot of broccoli and does not drink alcohol that this will go away. I explained to him that the only way that this will go away is with surgery and that at this time it appears to be localized. He states he has not drink alcohol and 15 years. I have discussed that a cancer will continue to grow and could kill him. He states that this is in gods hands and we return to this earth in 12 months with new parents, and that is the normal cycle, we are just in this body temporarily. Objective Vital Signs/Intake & Output: Vital Signs 09/15/18 12:09 09/15/18 15:00 09/15/18 18:00 Temperature 98.4 F 98 F Pulse Rate 60 79 62 Respiratory Rate 16 16 Blood Pressure 107/67 106/73 Pulse Oximetry 100 100 09/15/18 19:00 09/15/18 20:00 09/15/18 23:00 Temperature 98.9 F 98.6 F Pulse Rate 100 H 99 H 74 Respiratory Rate 16 16 Blood Pressure 122/78 107/68 Pulse Oximetry 100 100 09/16/18 00:00 09/16/18 02:47 09/16/18 02:53 Temperature 98.1 F Pulse Rate 73 85 84 Respiratory Rate 16 Blood Pressure 106/70 Pulse Oximetry 100 09/16/18 07:00 Temperature 98.3 F Pulse Rate 88 Respiratory Rate 16 Blood Pressure 106/67 Pulse Oximetry 99 Intake & Output 09/15/18 09/16/18 09/16/18 18:59 06:59 18:59 Intake Total 820 / 820 0 / 0 Output Total 1725 / 1725 975 / 975 Balance -905 / -905 -975 / -975 Weight 49.5 kg Intake: IV 820 / 820 NS Inj 1,000 ML @ 125 mls/hr IV 500 / 500 .CONT .Q8H ANIL Rx#:[id number] Calcium Chloride Inj 1 GM In NS 110 / 110 Inj 100 ML @ 110 mls/hr IV.SIG ONCE ONE Rx#:[id number] Oral 0 / 0 Output: Urine 1725 / 1725 975 / 975 Other: Date of Last Bowel Movement 09/14/18 Result Diagrams: 09/11/18 12:57 09/16/18 06:31 Laboratory Results: Laboratory Results - last 24 hr 09/16/18 06:31 Sodium 135 L Potassium 4.7 Chloride 105 Carbon Dioxide 22.9 Anion Gap 7 BUN 2 L Creatinine 0.87 Estimated GFR Greater than 89 Random Glucose 71 L Calcium 6.8 L* Calcium Adj for Albumin 8.1 L Magnesium 1.5 Albumin 2.4 L Medications: Active Medications Generic Name Dose Route Start Last Admin Trade Name Freq PRN Reason Stop Dose Admin Calcitriol 0.25 mcg 09/10/18 09:00 09/16/18 08:37 Rocaltrol PO 09/17/18 08:59 0.25 mcg DAILY ANIL Administration Calcium Carbonate 1,000 mg 09/12/18 18:00 09/16/18 08:37 Tums Chew CHEW 1,000 mg QID ANIL Administration Ergocalciferol 50,000 unit 09/13/18 11:00 09/13/18 13:05 Vitamin D2 PO 50,000 unit Q7D ANIL Administration Sodium Chloride 2 ml 09/06/18 21:00 09/16/18 08:38 Ns Flush IV.FLUSH 2 ml BID ANIL Administration Sodium Chloride 2 ml 09/06/18 13:12 09/08/18 08:01 Ns Flush IV.FLUSH 2 ml PRN PRN Administration FLUSH AFTER USING IV ACCESS Objective Remarks: GENERAL: Disheveled appearing elderly male patient, in no acute rest. SKIN: Warm and dry. HEAD: Normocephalic. EYES: No scleral icterus. No injection or drainage. NECK: Supple, trachea midline. CARDIOVASCULAR: Regular rate and rhythm without murmurs. RESPIRATORY: Breath sounds clear, equal bilaterally. No accessory muscle use. GASTROINTESTINAL: Abdomen soft, non-tender, nondistended. EXTREMITIES: No cyanosis, or edema. MUSCULOSKELETAL: Adequate muscle tone. NEUROLOGICAL: No obvious focal deficit. Awake, alert, and oriented x3. PSYCHIATRIC: No eye contact. Questionable, not logical thought process. Assessment/Plan - Plan 63-year-old male with new diagnosis of renal cell carcinoma admitted with weakness 1. Calcium level continues to improve, 6.8 today and calcium adjusted for albumin is 8.1. 2. Renal cell carcinoma, appears to be localized.surgical removal was recommended. Patient refuses surgery at this time. Awaiting psychiatric consult for capacity. 3. Patient needs psychiatric consult to to evaluate capacity to make decisions. 5. Discussed with CHANEL Mcnally from palliative services, she will attempt to locate family. 6. At this point the patient is refusing treatment for renal cell carcinoma. We will sign off from an oncology standpoint at this time. If there are any changes, we will be happy to see the patient again. - Attending Statement The exam, history, and the medical decision-making described in the above note were completed with the assistance of the mid-level provider. I reviewed and agree with the findings presented. I attest that I had a [id number] encounter with the patient on the same day, and personally performed and documented my assessment and findings in the medical record. Patient denies any new complaint He is a still refusing surgery He states that God will take care of that There is nothing else that I can add to his care. He needs to have surgery to remove renal cell cancer I will sign off on the case I will be available as needed Please call me back if you have any further questions
--- NOTE | 2018-09-16 12:06 | P.CONPSY ---
Provisional Diagnosis Admission Date: September 06, 2018 15:54 [place] I.: Psychological factors affecting a medical condition History of Present Illness Service: ER Primary Care Provider: UNKNOWN Chief Complaint: Weakness History of Present Illness: The patient is a 63-year-old -[place] man, domiciled alone in [facility], supported by Social Security, he denies previous psychiatric history, denies previous psychiatric hospitalizations, the pre-suicide attempts, no significant medical history, who was brought to the emergency room on 09/06/18 with complaints of generalized malaise and weakness. Patient was riding his bicycle to the grocery store and he suddenly felt weak all over and his legs were giving away. He also developed shortness of breath and fatigue. Patient also reported in the emergency room that symptoms started approximately 4 months ago and have progressively worsened. Laboratory workup revealed WBC 3.4, hemoglobin 9.8, hematocrit 30.8, platelet count 219, PT 11.7, INR 1.2, sodium 129, potassium 3.2, BUN/creatinine 7/1.19, random glucose 80, calcium 5.0, phosphorus 1.6, AST 44, ALT 17, CKMB 1.1, total protein 7.1, albumin 2.9, TSH 1.730, vitamin D 25-hydroxy 15. Chest x-ray revealed no acute cardiopulmonary abnormality. EKG revealed sinus rhythm with prolonged QT interval. Patient has been consulted to me for decision-making capacity. On my evaluation I find a patient that is calm, cooperative, pleasant. The patient is fully oriented x3, he is aware of who is the president of denies states what is the reason of his hospitalization. Reports to be in a good mood, denies hopelessness, denies helplessness, denies worthlessness, denies suicidal and homicidal ideation, denies visual and auditory hallucinations. Patient is future oriented, he says that he has several candidates to get in the future,my goal is to get again. He clarifies that he is looking forward to get better and go back to home. He is willing to cooperate with medical treatment and recommendations, and to have procedures done if that really needed. He clarifies that he prefers not to have surgery if there are other alternatives to explore. 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 Review of Systems All other systems reviewed negative except as stated in HPI PMFSH - History History Provided By: Patient, Medical Record - Medical History Medical History: Medical History (Last Reviewed 09/16/18 @ 08:00 by Richard Muir, PT) Patient denies medical problems - Surgical History Surgical History: Surgical History (Last Reviewed 09/16/18 @ 08:00 by Richard Muir, PT) No history of previous surgery - Family History Family History: Family History (Last Reviewed 09/16/18 @ 08:00 by Richard Muir, PT) Other Patient denies significant medical history - Tobacco History Second Hand Smoke Exposure: No Tobacco Use In Past 30 Days: No Smoking Status: Former smoker Tobacco Type: Cigarettes - Alcohol History How Often Do You Have a Drink Containing Alcohol: Never - Substance Use History Substance History: No History of Abuse - Travel History Recent Travel in the [facility] Within the Last 8 Weeks: No Recent Travel Out of the Country Within the Last 8 Weeks: No - Immunization History Tetanus Immunization: >5 Years Medications and Allergies Active Medications: Active Medications Calcitriol (Rocaltrol) 0.25 mcg PO DAILY [facility] Stop: 09/17/18 08:59 Last Admin: 09/16/18 08:37 Dose: 0.25 mcg Calcium Carbonate (Tums Chew) 1,000 mg CHEW QID [facility] Last Admin: 09/16/18 08:37 Dose: 1,000 mg Ergocalciferol (Vitamin D2) 50,000 unit PO Q7D [facility] Last Admin: 09/13/18 13:05 Dose: 50,000 unit Sodium Chloride (Ns Flush) 2 ml IV.FLUSH BID [facility] Last Admin: 09/16/18 08:38 Dose: 2 ml Sodium Chloride (Ns Flush) 2 ml IV.FLUSH PRN PRN PRN Reason: FLUSH AFTER USING IV ACCESS Last Admin: 09/08/18 08:01 Dose: 2 ml Allergies Allergy/AdvReac Type Severity Reaction Status Date / Time No Known Allergies Allergy Verified 09/06/18 09:20 Home Medications Medication Instructions Recorded Confirmed Type No Known Home Medications 09/06/18 09/06/18 History Exam Vital signs: Vital Signs 09/15/18 12:09 09/15/18 15:00 09/15/18 18:00 Temperature 98.4 F 98 F Pulse Rate 60 79 62 Respiratory Rate 16 16 Blood Pressure 107/67 106/73 Pulse Oximetry 100 100 09/15/18 19:00 09/15/18 20:00 09/15/18 23:00 Temperature 98.9 F 98.6 F Pulse Rate 100 H 99 H 74 Respiratory Rate 16 16 Blood Pressure 122/78 107/68 Pulse Oximetry 100 100 09/16/18 00:00 09/16/18 02:47 09/16/18 02:53 Temperature 98.1 F Pulse Rate 73 85 84 Respiratory Rate 16 Blood Pressure 106/70 Pulse Oximetry 100 09/16/18 07:00 09/16/18 08:00 Temperature 98.3 F Pulse Rate 88 78 Respiratory Rate 16 Blood Pressure 106/67 Pulse Oximetry 99 Intake & Output 09/15/18 09/16/18 09/16/18 18:59 06:59 18:59 Intake Total 820 / 820 0 / 0 Output Total 1725 / 1725 975 / 975 Balance -905 / -905 -975 / -975 Weight 49.5 kg Intake: IV 820 / 820 NS Inj 1,000 ML @ 125 mls/hr IV 500 / 500 .CONT .Q8H [facility] Rx#:[id number] Calcium Chloride Inj 1 GM In NS 110 / 110 Inj 100 ML @ 110 mls/hr IV.SIG ONCE ONE Rx#:[id number] Oral 0 / 0 Output: Urine 1725 / 1725 975 / 975 Other: Date of Last Bowel Movement 09/14/18 09/14/18 - Constitutional no acute distress, mild distress - Routine HEENT Exam Head: Present: normocephalic, atraumatic Eye: Present: EOMI ENT: Present: mucous membranes moist Mental Status Examination Appearance: Appropriate Consciousness: Alert Orientation: x4 Motor Activity: Normal gait Speech: Unremarkable Language: Adequate Fund of Knowledge: Adequate Attention and Concentration: Adequate Memory: Unremarkable Mood: Appropriate Affect: Appropriate Thought Process & Associations: Intact Thought Content: Appropriate Hallucination Type: None Delusion Type: None Suicidal Ideation: No Suicidal Plan: No Suicidal Intention: No Homicidal Ideation: No Homicidal Plan: No Homicidal Intention: No Insight: Adequate Judgment: Adequate Assessment and Plan - Assessment (1) Psychological factors affecting medical condition Code(s): F54 - Psychological and behavioral factors associated with disorders or diseases classified elsewhere Status: Acute - Plan Plan: On my psychiatric evaluation today the patient is calm, cooperative, logical, coherent and relevant. The patient does not present any subjective or objective symptomatology of acute, concerning or significant depression, anxiety , hermelinda or psychosis. The patient denies suicidal and homicidal ideation, he denies visual and auditory hallucinations. The patient is future oriented, able to verbalize interest in continue medical treatment, refuses to have surgery but is open to alternative. He is able to verbalize a fair understanding and appreciation of medical condition. At this moment the patient keeps his decision-making capacity to participate in the treatment plan. No admission indicated. No psychotropics recommended. Consult appreciated. Justification for Continued Inpatient Stay: No admission is indicated.
--- NOTE | 2018-09-16 16:27 | P.PNNP ---
Subjective Interval history: Patient is seen he has lost weight Physical Exam Vital signs: Vital Signs 09/15/18 18:00 09/15/18 19:00 09/15/18 20:00 Temperature 98.9 F Pulse Rate 62 100 H 99 H Respiratory Rate 16 Blood Pressure 122/78 Pulse Oximetry 100 09/15/18 23:00 09/16/18 00:00 09/16/18 02:47 Temperature 98.6 F 98.1 F Pulse Rate 74 73 85 Respiratory Rate 16 16 Blood Pressure 107/68 106/70 Pulse Oximetry 100 100 09/16/18 02:53 09/16/18 07:00 09/16/18 08:00 Temperature 98.3 F Pulse Rate 84 88 78 Respiratory Rate 16 Blood Pressure 106/67 Pulse Oximetry 99 09/16/18 13:20 Temperature 98.4 F Pulse Rate Respiratory Rate 16 Blood Pressure 113/76 Pulse Oximetry 98 Intake & Output 09/15/18 09/16/18 09/16/18 18:59 06:59 18:59 Intake Total 820 / 820 0 / 0 Output Total 1725 / 1725 975 / 975 Balance -905 / -905 -975 / -975 Weight 49.5 kg Intake: IV 820 / 820 NS Inj 1,000 ML @ 125 mls/hr IV 500 / 500 .CONT .Q8H [facility] Rx#:[id number] Calcium Chloride Inj 1 GM In NS 110 / 110 Inj 100 ML @ 110 mls/hr IV.SIG ONCE ONE Rx#:[id number] Oral 0 / 0 Output: Urine 1725 / 1725 975 / 975 Other: Date of Last Bowel Movement 09/14/18 09/14/18 Narrative: awake and alert , speech soft but clear Regular rate and rhythm No lower extremity edema Clear lungs bilaterally, no rales no wheezes abdomen soft, no CVA tenderness Alert awake and oriented x3, no focal deficits. - Urinary Catheter Management Indwelling Urethral Catheter Cath placed during this visit: yes, but has since been removed by the nurse Reason for continuing: Other continuation reason Insertion date: 09/07/18 Insertion time: 13:00 Removal date: 09/08/18 Removal time: 13:39 Assessment and Plan - Assessment (1) Hypocalcemia Code(s): E83.51 - Hypocalcemia Status: Acute Plan: Etiology likely malignancy left renal mass on CT scan Post biopsy Renal cell cancer confirmed patient calcium runs low, he is getting supplement Nothing further to add from nephrology I will sign off Refusing surgery He needs to follow with urology and oncology (2) Acute hyponatremia Code(s): E87.1 - Hypo-osmolality and hyponatremia Status: Acute Plan: Resolved due to dehydration (3) Acute hypokalemia Code(s): E87.6 - Hypokalemia Status: Acute Plan: Improved after replacement - Plan Multiple electrolyte imbalance due to poor nutrition/low albumin need to replace Give him Ensure Continue to monitor for improvement
--- NOTE | 2018-09-16 18:59 | P.PNIM ---
Subjective Interval history: Nursing denies any acute changes overnight. When asked the patient why he does not drink milk, he says that the last time he drank milk he had a bad reaction, when asking exactly what he denies a rash or any anaphylactic reaction. He mentioned that when he took it last time he had a "bad dream" and then a lot of bad social events started happening including financial troubles. Physical Exam Vital signs: Vital Signs 09/15/18 19:00 09/15/18 20:00 09/15/18 23:00 Temperature 98.9 F 98.6 F Pulse Rate 100 H 99 H 74 Respiratory Rate 16 16 Blood Pressure 122/78 107/68 Pulse Oximetry 100 100 09/16/18 00:00 09/16/18 02:47 09/16/18 02:53 Temperature 98.1 F Pulse Rate 73 85 84 Respiratory Rate 16 Blood Pressure 106/70 Pulse Oximetry 100 09/16/18 07:00 09/16/18 08:00 09/16/18 12:00 Temperature 98.3 F Pulse Rate 88 78 114 H Respiratory Rate 16 Blood Pressure 106/67 Pulse Oximetry 99 09/16/18 13:20 09/16/18 16:00 09/16/18 16:25 Temperature 98.4 F 98.0 F Pulse Rate 92 H 85 Respiratory Rate 16 16 Blood Pressure 113/76 118/80 Pulse Oximetry 98 100 Intake & Output 09/15/18 09/16/18 09/16/18 18:59 06:59 18:59 Intake Total 820 / 820 0 / 0 Output Total 1725 / 1725 975 / 975 Balance -905 / -905 -975 / -975 Weight 49.5 kg Intake: IV 820 / 820 NS Inj 1,000 ML @ 125 mls/hr IV 500 / 500 .CONT .Q8H [facility] Rx#:[id number] Calcium Chloride Inj 1 GM In NS 110 / 110 Inj 100 ML @ 110 mls/hr IV.SIG ONCE ONE Rx#:[id number] Oral 0 / 0 Output: Urine 1725 / 1725 975 / 975 Other: Date of Last Bowel Movement 09/14/18 09/14/18 Narrative: Heart sounds regular rate rhythm Clear lungs bilaterally, labored breathing No carpal pedal spasms elicited today No facial droop, no slurred speech Thin black male, awake, alert, no acute distress - Urinary Catheter Management Indwelling Urethral Catheter Cath placed during this visit: yes, but has since been removed by the nurse Reason for continuing: Other continuation reason Insertion date: 09/07/18 Insertion time: 13:00 Removal date: 09/08/18 Removal time: 13:39 Results - Labs CBC & Chem 7: 09/11/18 12:57 09/16/18 06:31 Laboratory Results - last 24 hr 09/16/18 06:31 Sodium 135 L Potassium 4.7 Chloride 105 Carbon Dioxide 22.9 Anion Gap 7 BUN 2 L Creatinine 0.87 Estimated GFR Greater than 89 Random Glucose 71 L Calcium 6.8 L* Calcium Adj for Albumin 8.1 L Magnesium 1.5 Albumin 2.4 L - Procedures left renal biopsy done 09/11 Assessment and Plan - Assessment (1) Hypocalcemia Code(s): E83.51 - Hypocalcemia Status: Acute (2) Hypomagnesemia Code(s): E83.42 - Hypomagnesemia Status: Acute - Plan 63-year-old black male being admitted for symptomatic hypercalcemia, suspected to be due to nutritional self deprivation. Somewhat improved since admission. Found to have renal cell carcinoma based upon biopsy, patient refusing surgery, so far MDM is intact per psychiatry. Has had some hyponatremia she is borderline but stable. Symptomatic hypocalcemia Still persistent, continue to give IV calcium gluconate as warranted, continue high protein intake, aggressive oral calcium carbonate and vitamin D supplementation Calcitriol, ergocalciferol, Tums -Nephrology following Keep on telemetry -trend bmp -Ensure Hypomagnesemia Likely secondary to malnutrition, continue aggressive supplementation orally, and as needed IV Secondary hyperparathyroidism -Secondary to hypocalcemia, tx above renal cell carcinoma Confirmed on biopsy, patient refusing surgery PT
[2018-09-16] MEDS: Magnesium Oxide 400 MG Tablet PO SCH (20:36)
[2018-09-16] MEDS: Mag Sulf 1 gm/100 ml Premix 100 ML IV.SIG SCH ×2 (20:36→21:50)
[2018-09-17 06:56] LABS: Anion Gap 6 meq/L (5-15); Blood Urea Nitrogen 3 mg/dL (7-18); Calcium 7.6 mg/dL (8.5-10.1); Carbon Dioxide 24.7 meq/L (21.0-32.0); Chloride 102 meq/L (98-107); Glomerular Filtration Rate Greater Than 89 mL/min (>89); Glucose,Random 74 mg/dL (74-106); Magnesium 1.9 mg/dL (1.5-2.5); Potassium 4.7 meq/L (3.5-5.1); Sodium 133 meq/L (136-145)
[2018-09-17] MEDS: Magnesium Oxide 400 MG Tablet PO SCH (08:23)
[2018-09-17 10:58] VITALS: RESP 16
--- NOTE | 2018-09-17 11:42 | P.DS ---
Date of admission: 09/06/18 15:54 Primary care physician: UNKNOWN Brief History from admission: 63-year-old black male being admitted for symptomatic hypocalcemia. Patient was in his usual state of health until this morning after he had bicycled to a grocery store and went inside, felt all of a sudden weak all over , felt his legs give away, developed some shortness of breath and fatigue. Reports some lightheadedness but denies full loss of consciousness. He denies having any chest pain. Ambulance was called. In the emergency department vital signs were stable, blood work was all unremarkable except for a albumin adjusted calcium of 5.9. Patient started on IV fluids and calcium supplementation. EKG was obtained which adamantly reviewed which shows no concerning changes for ischemia or infarction, however there appears to be a sawtooth pattern with mild QT prolongation. Hemodynamically stable otherwise. Repeat EKG is being ordered. Patient says he does not drink milk, says he would rather prefer to not drink milk if it was an option. DS: Summary Hospital Course: 63-year-old black male being admitted for symptomatic hypercalcemia, suspected to be due to nutritional self deprivation. Somewhat improved since admission. Found to have renal cell carcinoma based upon biopsy, patient refusing surgery, so far MDM is intact per psychiatry. Has had some hyponatremia she is borderline but stable. //Symptomatic hypocalcemia Still persistent, continue to give IV calcium gluconate as warranted, continue high protein intake, aggressive oral calcium carbonate and vitamin D supplementation Calcitriol, ergocalciferol, Tums -Nephrology following Keep on telemetry -trend bmp -Ensure = Multifactorial, but in large part secondary to vitamin D deficiency, in addition to renal cell carcinoma. To follow-up with oncology, urology as outpatient. //Hypomagnesemia Likely secondary to malnutrition, continue aggressive supplementation orally, and as needed IV //Secondary hyperparathyroidism -Secondary to hypocalcemia, tx above //renal cell carcinoma Confirmed on biopsy, patient refusing surgery PT Discussed Condition With: Patient, nurse Discharge Planning: Discharge home. Follow-up with oncology as outpatient. - Time Spent with Patient Total time spent providing and/or coordinating discharge services: Greater than 30 minutes - Quality: VTE Deep Vein Thrombosis/Pulmonary Embolism Present on Admission: No Exam Vital signs: Vital Signs 09/16/18 12:00 09/16/18 13:20 09/16/18 16:00 Temperature 98.4 F Pulse Rate 114 H 92 H Respiratory Rate 16 Blood Pressure 113/76 Pulse Oximetry 98 09/16/18 16:25 09/16/18 19:00 09/16/18 20:00 Temperature 98.0 F 98.7 F Pulse Rate 85 91 H 72 Respiratory Rate 16 17 Blood Pressure 118/80 104/71 Pulse Oximetry 100 100 09/16/18 23:00 09/16/18 23:05 09/17/18 03:00 Temperature 98.9 F 98.6 F Pulse Rate 73 65 81 Respiratory Rate 18 18 Blood Pressure 105/65 110/67 Pulse Oximetry 100 98 09/17/18 03:13 09/17/18 07:00 09/17/18 08:16 Temperature 98.0 F Pulse Rate 70 82 74 Respiratory Rate 16 Blood Pressure 107/70 Pulse Oximetry 97 Intake & Output 09/16/18 09/17/18 09/17/18 18:59 06:59 18:59 Intake Total 360 / 360 200 / 200 Output Total 700 / 700 1000 / 1000 Balance -340 / -340 -800 / -800 Weight 48 kg Intake: IV 200 / 200 Magnesium Sulfate 1 gm/D5W 100 200 / 200 ml Premix 100 ML @ 100 mls/hr IV.SIG Q1H [facility] Rx#:[id number] Oral 360 / 360 Output: Urine 700 / 700 1000 / 1000 Other: Date of Last Bowel Movement 09/14/18 09/14/18 Results Procedures completed during hospitalization: left renal biopsy done 09/11 Labs on day of discharge: Labs from last 24 hours 09/17/18 05:51 Sodium 133 L Potassium 4.7 Chloride 102 Carbon Dioxide 24.7 Anion Gap 6 BUN 3 L Creatinine 1.01 Estimated GFR Greater than 89 Random Glucose 74 Calcium 7.6 L D Magnesium 1.9 - Impressions ITS Impressions Chest X-Ray 09/06/18 09:57 CONCLUSION: No acute cardiopulmonary abnormality is identified. Abdomen/Pelvis CT 09/07/18 00:00 CONCLUSION: 1. Hepatic and renal cysts. 2. There is an exophytic mass arising off the upper pole of the left kidney suspicious for renal cell carcinoma until proven otherwise. Chest CT 09/07/18 00:00 CONCLUSION: 1. Left upper quadrant mass believed to arise off the upper pole of the left kidney measuring up to 6.9 cm. A renal cell carcinoma should be excluded. 2. Hepatic cysts. 3. Left renal cyst. 4. The density on the recent chest x-ray of the right lung base corresponds to left lobe of the liver. Renal Biopsy CT 09/11/18 00:00 CONCLUSION: 1. Uncomplicated CT guided biopsy. Discharge Plan - Discharge Disposition Patient Disposition: /[facility] - Discharge Order Discharge Orders: Discharge Order (Routine); Ordered 09/17/18 Ordered By: Stef Rao - Discharge Details Anticipated Discharge Date: 09/14/18 - Physicians Team Primary Care Provider: UNKNOWN, Attending Provider: Stef Rao Other Providers: Kerrie Cunningham MD ; Brown Funez MD ; Melanie Rojo, PhD ; Quintin Levin MD ; Ngozi Steel MD ; Elton Churchill MD ; Yo Gonzalez MD
--- NOTE | 2018-09-17 11:42 | P.PNIM ---
Subjective Interval history: Says he is feeling right. Says he is walking around, however would like walker to go home. We discussed his renal cell carcinoma, and he again asserts that he does not want any treatment for this. We discussed the natural course of this cancer to include metastasis, debilitation and . I have advised him to follow-up with primary care for continued symptomatic management of this condition. Physical Exam Vital signs: Vital Signs 09/16/18 12:00 09/16/18 13:20 09/16/18 16:00 Temperature 98.4 F Pulse Rate 114 H 92 H Respiratory Rate 16 Blood Pressure 113/76 Pulse Oximetry 98 09/16/18 16:25 09/16/18 19:00 09/16/18 20:00 Temperature 98.0 F 98.7 F Pulse Rate 85 91 H 72 Respiratory Rate 16 17 Blood Pressure 118/80 104/71 Pulse Oximetry 100 100 09/16/18 23:00 09/16/18 23:05 09/17/18 03:00 Temperature 98.9 F 98.6 F Pulse Rate 73 65 81 Respiratory Rate 18 18 Blood Pressure 105/65 110/67 Pulse Oximetry 100 98 09/17/18 03:13 09/17/18 07:00 09/17/18 08:16 Temperature 98.0 F Pulse Rate 70 82 74 Respiratory Rate 16 Blood Pressure 107/70 Pulse Oximetry 97 Intake & Output 09/16/18 09/17/18 09/17/18 18:59 06:59 18:59 Intake Total 360 / 360 200 / 200 Output Total 700 / 700 1000 / 1000 Balance -340 / -340 -800 / -800 Weight 48 kg Intake: IV 200 / 200 Magnesium Sulfate 1 gm/D5W 100 200 / 200 ml Premix 100 ML @ 100 mls/hr IV.SIG Q1H [facility] Rx#:[id number] Oral 360 / 360 Output: Urine 700 / 700 1000 / 1000 Other: Date of Last Bowel Movement 09/14/18 09/14/18 Narrative: GENERAL: Sitting up in chair. Appears comfortable. Alert and oriented x3. SKIN: Warm and dry. HEAD: Normocephalic. EYES: No scleral icterus. No injection or drainage. NECK: Supple, trachea midline. No JVD. CARDIOVASCULAR: Regular rate and rhythm without murmurs, gallops, or rubs. RESPIRATORY: Breath sounds equal bilaterally. No accessory muscle use. GASTROINTESTINAL: Abdomen soft, non-tender, nondistended. MUSCULOSKELETAL: No cyanosis, or edema. BACK: Nontender without obvious deformity. No CVA tenderness. - Urinary Catheter Management Indwelling Urethral Catheter Cath placed during this visit: yes, but has since been removed by the nurse Reason for continuing: Other continuation reason Insertion date: 09/07/18 Insertion time: 13:00 Removal date: 09/08/18 Removal time: 13:39 Results - Labs CBC & Chem 7: 09/11/18 12:57 09/17/18 05:51 Laboratory Results - last 24 hr 09/17/18 05:51 Sodium 133 L Potassium 4.7 Chloride 102 Carbon Dioxide 24.7 Anion Gap 6 BUN 3 L Creatinine 1.01 Estimated GFR Greater than 89 Random Glucose 74 Calcium 7.6 L D Magnesium 1.9 - Procedures left renal biopsy done 09/11 Assessment and Plan - Plan 63-year-old black male being admitted for symptomatic hypercalcemia, suspected to be due to nutritional self deprivation. Somewhat improved since admission. Found to have renal cell carcinoma based upon biopsy, patient refusing surgery, so far MDM is intact per psychiatry. Has had some hyponatremia she is borderline but stable. //Symptomatic hypocalcemia Still persistent, continue to give IV calcium gluconate as warranted, continue high protein intake, aggressive oral calcium carbonate and vitamin D supplementation Calcitriol, ergocalciferol, Tums -Nephrology following Keep on telemetry -trend bmp -Ensure = Multifactorial, but in large part secondary to vitamin D deficiency, in addition to renal cell carcinoma. To follow-up with oncology, urology as outpatient. //Hypomagnesemia Likely secondary to malnutrition, continue aggressive supplementation orally, and as needed IV //Secondary hyperparathyroidism -Secondary to hypocalcemia, tx above //renal cell carcinoma Confirmed on biopsy, patient refusing surgery PT Discussed Condition With: Patient, nurse Discharge Planning: Discharge home. Follow-up with oncology as outpatient.
[2018-09-17 11:55] VITALS: O2SAT 99
[2018-09-17 16:18] VITALS: BP 106/74; PULSE 70; TEMP 98
== END 2018-09-17 17:28 | disposition home health service (06) ==
LOC: NEPE 09:13 → NEDA 09:13 → NEPHCDU 15:10 → HIMC 19:00 → HCIS 09-09 11:16 → HCIN 09-12 13:57
PROVIDERS: ADMIT Internal Medicine; ATTEND Internal Medicine
DX: C64.2 Malignant neoplasm of left kidney, except renal pelvis; E87.1 Hypo-osmolality and hyponatremia; Z51.5 Encounter for palliative care; E83.42 Hypomagnesemia; E43 Unspecified severe protein-calorie malnutrition; E87.6 Hypokalemia; F54 Psychological and behavioral factors associated with disorders or diseases classified elsewhere; Z87.891 Personal history of nicotine dependence; N25.81 Secondary hyperparathyroidism of renal origin; D64.9 Anemia, unspecified; Z68.1 Body mass index [BMI] 19.9 or less, adult; E83.51 Hypocalcemia